=== PATIENT | female | born 1955 | race Caucasian/White ===

== ENCOUNTER 2016-09-23 19:24 | Inpatient (IN) | payer MEDICARE ==
[~2016-09-23] VITALS: Ht 162.6 cm; Wt 57.9 kg
[~2016-09-23 19:24] MED LIST: ALBUTHFA INH; AMAN100T PO; BISA5TAB12 PO; BISA5TAB96 PO; BUPR150T12 PO; BUPR200T PO; CYCL10TA9 PO; GLAT20KI2 SUBQ; HYDR50CA PO; HYDR50CA3 PO; KEP500TA PO; LANS30CA14 PO; LANS30CA8 PO; MIRT45TA PO; MIRT45TA5 PO; OXYC1TAB24 PO; PER5 PO; POLY1PAC PO; RANI300T4 PO; SOD4000S2 PO; SYM100 PO; VENL100T3 PO; VIS50 PO; [UNRECOGNIZED DRUG - CODE] PO; copaxone SC
[2016-09-23] MEDS ORDERED: Albuterol 2.5 mg/3 mL Inhalation Solution NEB PRN (19:45)
[2016-09-23] MEDS ORDERED: Alum-Mag Hydrox-Simeth 30 mL Suspension PO PRN (19:45)
[2016-09-23] MEDS ORDERED: Polyethylene Glycol (PEG) 17 Gm Powder PO PRN (19:45)
[2016-09-23 20:22] VITALS: PULSE 122; RESP 24; O2SAT 98
--- NOTE | 2016-09-23 20:26 | PCM.HPMED ---
Subjective Date of Service Sep 23, 2016 Primary Provider: Admitting Physician: April Horan DO Primary Care Physician: Tee Elliott MD Attending Physician: April Horan DO Admit Status: Direct Admit (from urgent care) Chief Complaint: Productive cough History of Present Illness: Ms. Nicci John is a 61-year-old woman with a history of relapsing remitting multiple sclerosis, seizure disorder suspected to be secondary to multiple sclerosis or electrolyte imbalance, history of pneumonia requiring intubation, tension headaches, chronic pain, ongoing tobacco use, and depression , that presented to [facility] as a direct admission from urgent care for ongoing symptoms of productive cough, tachycardia, and congestion. She was admitted for evaluation of suspected community-acquired pneumonia in the setting of undiagnosed COPD. Hospital day 1 Patient is a rather poor historian, and is unable to recall many details of her medical history and current medication list. She notes that over the recent few weeks, she has been experiencing a daily, frequent, productive cough. She denies any associated fever, nausea, vomiting, dysuria, diarrhea. She does endorse a headache, which is chronic for her, in addition to occasional chills. She does note her was recently ill with cold-like symptoms as well, and her symptoms over the recent weeks have not improved. Her is present for the latter half of the admission, and he strongly feels as if his place of residence is contributing to their symptoms, as they have both been feeling ill recently. Patient denies any personal history of diagnosis of COPD , despite her lengthy tobacco history, which is estimated at approximately 45- 50 pack years, as patient reports she recently cut down her smoking to approximately one half pack per day. She denies any history of chronic or daily alcohol use or substance abuse, but review of past admissions, it was noted that she was at one time a daily drinker and does have a history of amphetamine use. She does use home oxygen therapy. She describes her cough as continuous, but she denies any associated shortness of breath with the coughing , and she also denies post tussive emesis. She denies any hemoptysis. As an outpatient, she was prescribed azithromycin on 09/21. She denies any other antibiotic use. Of note, patient had multiple admissions for atypical pneumonia back in 2011 which required a prolonged ICU stay, as she was intubated. At that time, no organism was identified. At urgent care, T 37.0, pulse 138, BP 105/68, 91% on room air with ambulation, 93% on rest; labs are obtained when she arrived to hospital floor. She was [place] [facility]. Review of Systems: Complete ROS obtained; pertinent positives and negatives as noted above Allergies Coded Allergies: tetracycline (Verified Allergy, Severe, 04/22/12) lorazepam (Verified Adverse Reaction, Intermediate, confusion, 04/22/12) gives patient amnesia and confusion Home Medications Medication list obtained from [email or web address], 09/23/2016, as patient is unable to recall any of her medications: Alvaro Nicci Smita. [id number] 1955 09/23/2016 05:40 PM 06/02 Start Date Medication Directions 09/21/2016 Aerochamber MV spacer Use as directed with inhaler 09/21/2016 azithromycin 250 mg tablet Take 2 tablets today and then 1 tablet each day after that until gone 03/20/2015 Flovent HFA 220 mcg/actuation aerosol inhaler inhale 2 puff by inhalation route 2 times every day hydroxyzine pamoate 50 mg capsule take 1 capsule by oral route every evening lansoprazole 30 mg capsule,delayed release take 1 capsule by oral route every day before a meal mirtazapine 45 mg tablet take 1 tablet by oral route every day before bedtime oxycodone-acetaminophen 5 mg-325 mg tablet take 2 tablet by oral route every 8 hours as needed 09/21/2016 prednisone 50 mg tablet take 1 tablet by oral route every day promethazine 25 mg tablet take 1 tablet by oral route every day at bedtime Tecfidera venlafaxine 100 mg tablet take 1 tablet by oral route 3 times every day with food 09/21/2016 Ventolin HFA 90 mcg/actuation aerosol inhaler inhale 2 puff by inhalation route every 4 - 6 hours as needed PMH Multiple sclerosis, relapsing remitting- followed at [facility] Headaches, tension type Chronic Pain GERD Depression/anxiety Tobacco use She denies any history of diabetes, lung conditions including asthma and COPD, denies any history of gastrointestinal disorders, denies any history of cardiac disorders. Surgical History sections Tonsillectomy EGD 2013 Colonoscopy 2013 Family History Reports multiple family members with diabetes; reports her father had one lung removed, of what she suspects to be secondary to cancer, but she is quite unsure ; denies any family history of neurological disorders Social History Occupation: disability Hx Alcohol Use: No (denies any alcohol use at this time) Hx Substance Use: Yes (WEED WHEN SHE WAS 17 YRS. OLD; chart review indicates amphetamine use in the past) Hx Tobacco Use: Yes (approximately 45 year history, currently 0.5 packs per day ) Smoking Status: Current Every Day Smoker (0.5 packs per day) Living Arrangement: with Family (, local; the vintage) Exam Exam General: Frail-appearing woman, alert and oriented 3, cooperative HEENT: Atraumatic, sclera anicteric, mucous membranes moist Neck: No evidence JVD, good skin turgor Cardiac: Tachycardic with a regular rhythm with rate approximately 100 at time of evaluation, no murmurs appreciated Respiratory: Bibasilar crackles appreciated with diffuse wheeze all hicks; no use of accessory muscles; patient was coughing throughout interview and respiratory examination Abdomen: Soft, nontender, nondistended Extremities: Thin, no edema present Skin: Warm and dry Pulses: Radial equal and intact, posterior tibialis equal and intact Neuro: Cranial nerves II through XII grossly intact, facial expressions were symmetric, speech was without slur Psych: Appropriate mood, affect, and response to questioning; although patient admits to "fog" and is unable to provide many details of her medical history which may be limiting to her insight and judgment Assessment & Plan Ms. Nicci John is a 61-year-old woman with a history of relapsing remitting multiple sclerosis, seizure disorder suspected to be secondary to multiple sclerosis or electrolyte imbalance, history of pneumonia requiring intubation, tension headaches, chronic pain, ongoing tobacco use, and depression , that presented to [facility] as a direct admission from urgent care for ongoing symptoms of productive cough, tachycardia, and congestion. She was admitted for evaluation of suspected community-acquired pneumonia in the setting of undiagnosed COPD. Hospital day 1 Sepsis, acute, present on admission. Under evaluation - On admit: P122. WBC 20.3 - DDx: Infectious, likely pulmonary etiology in a pt with underlying COPD - PCT 14.31; LA 1.1 - Treat underlying cause(s) - Abx: ceftriaxone and azithromycin at this time; expand/narrow as results from pending studies return Acute hypoxemic respiratory failure, present on admission. Under evaluation - Likely secondary to acute exacerbation of COPD, which may be due to infection , ongoing tobacco use, environmental triggers - Treat underlying cause Suspected acute exacerbation of undiagnosed COPD, present on admission. Under evaluation - Patient has long time tobacco use; reports recent sick contacts; denies Dx COPD - DDx: Environmental triggers, continued tobacco use, viral/bacterial infection , atypical infection - CXR 09/21: Bronchitis, left lower lobe pneumonia - Blood cultures, strep pneumo urine antigen, Legionella antigen, respiratory PCR, sputum cultures, MRSA swab - CBC with differential, CMP, PCT obtained - Abx: Ceftriaxone plus azithromycin - Prednisone burst; 40 mg daily 5 days; she denies any current or previous long -term steroid use - Duoneb qidwa + accuneb q2h prn Metabolic acidosis, pure, acute, present on admission. Under evaluation - On admit: Na 130, Cl 91, bicarb 17, albumin 4.3; AG 22/delta gap 10; 1.43 ratio - DDx: Ketones, uremia, lactic acid, toxins - Likely secondary to initial presentation of sepsis/suspicion for LA; decrease in Na secondary to medication (mirtazapine), or side effect tecfidera - Continue to monitor as underlying infection is treated - Awaiting UA Electrolyte abnormalities, acute, present on admission. Under therapy - On admit: Mg 1.3, K 3.4 Na 130 - Repleted on admission with 2g Mg and 40mEq K - Monitor with daily labs Ongoing tobacco use, chronic. Presumed stable - Patient reports decrease of daily use - Nicotine patch daily plus lozenges as needed - Continue to deputy general counsel on cessation Tachycardia, acute, present on admission. Under evaluation - May be secondary to ongoing cough, anxiety, infection, nebulizer treatment - Patient denies any cardiac symptoms of chest pain and palpitations - Address underlying causes, notably increased anxiety and coughing Relapsing remitting multiple sclerosis, chronic. Presumed stable - Patient admits to intermittent "fog" - Patient states symptoms are currently stable - Monitor - Home med Tecfidera: Order for pt to use own medication placed Anxiety/depression, chronic. Presumed stable - Resume home medications when reconciliation completed: Hydroxyzine, mirtazapine, promethazine per [employer] Tension-type headaches, chronic. Presumed stable - Resume home medications when rec completed: Venlafaxine per [employer] Chronic pain. Presumed stable - Patient reports oxycodone daily use; verified in [employer] - Available when necessary GERD, chronic. Presumed stable - Resume daily PPI therapy MED REC NOT YET COMPLETED AT TIME OF ADMISSION PRN: Fever/nausea/bowel/pain GI: PPI Diet: General; bedside swallow eval to assess aspiration with cough DVT: Heparin every 8h IVF: NS 100 CODE STATUS: Full code Patient status: Due to severity of presenting symptoms, risk of adverse events, and likely course of care, anticipated length of stay exceeds two midnights, patient admitted as inpatient status Pain Evaluation: Adequate Pain Control GI Prophylaxis: Proton Pump Inhibitor VTE Prophylaxis: Sub-Q Heparin (Unfractionated) Resuscitation Status: CPR: Attempt Resuscitation Attending Statement The patient was seen and examined together with house staff on 09/23/2016 and I agree with the history, exam and plan as outlined in the note above. Sapna Owen DO Sep 23, 2016 20:26 April Horan DO Sep 24, 2016 03:00
[2016-09-23] MEDS ORDERED: Albuterol-Ipratropium 3 mL Inhalation Solution NEB SCH (20:30)
[2016-09-23] MEDS ORDERED: cefTRIAXone Inj 2,000 MG in Dextrose 5% Minibag Plus 50 ML IV SCH (20:40)
[2016-09-23] MEDS ORDERED: predniSONE 20 mg Tablet PO ONE (20:40)
[2016-09-23 20:50] LABS: BASOPHILS % (AUTO) 0.2 % (0-3); EOSINOPHILS % (AUTO) 0.2 % (0-5); MONOCYTES % (AUTO) 8.7 % (4-12); Mean Corpuscular Hemoglobin 27.4 pg (27.0-35.0); Mean Corpuscular Volume 77.6 fL (81-100); NEUTROPHILS % (AUTO) 79.9 % (40-74); Platelet Count 452 bil/L (150-400)
[2016-09-23 20:52] VITALS: BP 114/72; PULSE 116; RESP 20; O2SAT 98
[2016-09-23] MEDS ORDERED: oxyCODONE-Acetamin 5-325 mg Tablet PO PRN (20:55)
[2016-09-23] MEDS: Albuterol-Ipratropium 3 mL Inhalation Solution NEB SCH (21:00)
[2016-09-23] MEDS: 0.9% Sodium Chloride 1,000 ML IV SCH (21:19)
[2016-09-23 21:29] LABS: TROPONIN T 0.01 ug/L (0.0-0.011)
[2016-09-23 21:40] LABS: Magnesium 1.3 mg/dL (1.6-2.6)
[2016-09-23] MEDS ORDERED: DIME240C2 PO (23:24)
[2016-09-23] MEDS ORDERED: Magnesium Sulf 2 Gm/50mL Water 2 GM in IV Premix 1 EACH IV ONE (23:25)
[2016-09-23] MEDS ORDERED: Codeine-guaiFENesin 5 mL Syrup PO PRN (23:25)
[2016-09-23] MEDS ORDERED: KCl 40 mEq/D5W 500 mL 40 MEQ in IV Premix 1 EACH IV ONE (23:25)
[2016-09-24] VITALS (14 sets, daily range): BP systolic 100–137; BP diastolic 55–83; PULSE 79–136; RESP 18–28; O2SAT 90–97
[2016-09-24] MEDS: Heparin 5,000 Unit/mL Inj SUBQ SCH ×4 (00:10→23:35)
[2016-09-24] MEDS: oxyCODONE-Acetamin 5-325 mg Tablet PO PRN ×3 (00:10→21:13)
[2016-09-24] MEDS: Codeine-guaiFENesin 10 mL Syrup PO PRN ×5 (00:10→23:35)
[2016-09-24] MEDS: TECFIDERA 240 MG PO SCH ×3 (01:08→21:14)
[2016-09-24] MEDS ORDERED: PROM25TA14 PO (01:33)
[2016-09-24] MEDS ORDERED: HYDR50CA3 PO (01:36)
[2016-09-24] MEDS ORDERED: TIZA4TAB4 PO (01:38)
[2016-09-24] MEDS ORDERED: OXYC1TAB24 PO (01:44)
[2016-09-24] MEDS ORDERED: LANS30CA14 PO (01:46)
[2016-09-24] MEDS ORDERED: LEVE500T3 PO (01:47)
[2016-09-24] MEDS ORDERED: hydrOXYzine Pamoate 25 mg Capsule PO ONE (02:10)
[2016-09-24] MEDS ORDERED: MIRT45TA5 PO (03:24)
[2016-09-24] MEDS ORDERED: RANI300T4 PO (03:26)
[2016-09-24] MEDS ORDERED: VENL100T3 PO (03:27)
[2016-09-24] MEDS ORDERED: VIT1TABL83 PO (03:33)
[2016-09-24] MEDS ORDERED: ASCO100089 PO (03:34)
[2016-09-24 03:35] LABS: APPEARANCE,URINE CLEAR (CLEAR,HAZY); COLOR,URINE YELLOW (YELLOW); OCCULT BLOOD,URINE NEGATIVE (NEGATIVE); UROBILINOGEN,URINE NORMAL (NORMAL)
[2016-09-24] MEDS ORDERED: CHOL500011 PO (03:35)
[2016-09-24] MEDS ORDERED: MULT-666 PO (03:36)
[2016-09-24 05:57] LABS: BASOPHILS % (AUTO) 0.1 % (0-3); EOSINOPHILS % (AUTO) 0.5 % (0-5); MONOCYTES % (AUTO) 7.6 % (4-12); Mean Corpuscular Hemoglobin 26.8 pg (27.0-35.0); Mean Corpuscular Volume 77.5 fL (81-100); NEUTROPHILS % (AUTO) 79.8 % (40-74); Platelet Count 434 bil/L (150-400)
[2016-09-24 06:23] LABS: Magnesium 2.2 mg/dL (1.6-2.6); Phosphorus 2.6 mg/dL (2.5-4.9)
[2016-09-24] MEDS: Pantoprazole 40 mg ER24 Tablet PO SCH (07:47)
[2016-09-24] MEDS: Azithromycin Inj 500 MG in Dextrose 5% w/Vial Mate 250 ML IV SCH (07:50)
[2016-09-24] MEDS ORDERED: predniSONE 20 mg Tablet PO SCH (08:30)
--- NOTE | 2016-09-24 09:09 | DRSVH ---
PROCEDURE: X-RAY CHEST ONE VIEW, PORTABLE ([id number]) INDICATIONS: SHORTNESS OF BREATH TECHNIQUE: One view of the chest was acquired. COMPARISON: [facility], CR, CHEST 1VW (PORTABLE), 07/01/2011, 10:10. [facility], CT, CT CHEST WO CON, 01/27/2015, 12:59. [facility], CR, XR CHEST 2VW, 09/21/2016, 19 :06. [facility], CR, XR CHEST 1VW (PORTABLE), 05/31/2015, 22:52. FINDINGS: Surgical changes and devices: None. Lungs and pleura: No pleural effusions or pneumothorax. Interval increase in mid/basilar patchy air space opacities. No pleural effusion or pneumothorax. Mediastinum: Mediastinal contours appear normal. Heart size is normal. Bones and chest wall: No suspicious bony lesions. Overlying soft tissues appear unremarkable. Heal ed right sixth and seventh posterior lateral fractures redemonstrated. IMPRESSION: 1. Increasing bilateral mid/bibasilar airspace opacities suggesting worsening pneumonia. Dictated by: Sandor Hernandez RRA Interpreted: Constance Shah MD on 09/24/2016 at 9:07 Transcribed by: WILTON on 09/24/2016 at 9:09 Approved by: Constance Shah MD, PhD on 09/24/2016 at 12:21
--- NOTE | 2016-09-24 09:29 | PCM.PNMED ---
Subjective Date of Service Sep 24, 2016 Subjective Continues to cough and has dyspnea. Afebrile. Chest x-ray shows worsening pneumonia. Exam Vital Signs Vital Sign - Last Date Time Temp Pulse Resp B/P Pulse Ox O2 Delivery O2 Flow Rate FiO2 09/24/16 09:01 37.0 119 20 100/68 96 Nasal Cannula 2.00 Intake and Output 09/23/16 09/23/16 09/24/16 Cumulative From/Thru 15:00 23:00 07:00 09/23/16 21:28 - 09/24/16 04:50 Intake Total 727 ml 727 ml Balance 727 ml 727 ml IV Total 727 ml 727 ml Exam General: Frail-appearing woman, alert and oriented 3, cooperative HEENT: Atraumatic, sclera anicteric, mucous membranes moist Neck: No evidence JVD, good skin turgor Cardiac: Tachycardic with a regular rhythm with rate approximately 100 at time of evaluation, no murmurs appreciated Respiratory: Bibasilar crackles appreciated with diffuse wheeze all hicks; rhonchi on left lower lung. No use of accessory muscles; patient was coughing throughout interview and respiratory examination Abdomen: Soft, nontender, nondistended Extremities: Thin, no edema present Skin: Warm and dry Pulses: Radial equal and intact, posterior tibialis equal and intact Neuro: Cranial nerves II through XII grossly intact, facial expressions were symmetric, speech was without slur Psych: Appropriate mood, affect, and response to questioning; although patient admits to "fog" and is unable to provide many details of her medical history which may be limiting to her insight and judgment IVs and Medications Medications Reviewed: Medications were reviewed in detail Lab and Diagnostics Result Diagram: 09/24/1653609/24/1637 X-Rays, CTs and MRIs PROCEDURE: X-RAY CHEST ONE VIEW, PORTABLE ([id number]) INDICATIONS: SHORTNESS OF BREATH IMPRESSION: 1. Increasing bilateral mid/bibasilar airspace opacities suggesting worsening pneumonia. Dictated by: Sandor QUINTANILLA Interpreted: Constance Shah MD on 09/24/2016 at 9:07 Assessment & Plan Ms. Nicci John is a 61-year-old woman with a history of relapsing remitting multiple sclerosis, seizure disorder suspected to be secondary to multiple sclerosis or electrolyte imbalance, history of pneumonia requiring intubation, tension headaches, chronic pain, ongoing tobacco use, and depression , that presented to [facility] as a direct admission from urgent care for ongoing symptoms of productive cough, tachycardia, and congestion. She was admitted for evaluation of suspected community-acquired pneumonia in the setting of undiagnosed COPD. Hospital day 1 #Sepsis, acute, present on admission. Under evaluation - On admit: P122. WBC 20.3 - DDx: CAP, likely pulmonary etiology in a pt with underlying COPD - PCT 14.31; LA 1.1. Streptococcus pneumo antigen and legionella negative. Blood culture pending - Treat underlying cause(s) - Initial Abx: ceftriaxone and azithromycin. Will broaden to Zosyn and azithromycin given worsening of bilateral pneumonia on chest x-ray and concern for aspiration -Chest x-ray shows worsening of bilateral pneumonia -Swallow evaluation requested due to concern of aspiration given history of MS and bilateral pneumonia #Acute hypoxemic respiratory failure, present on admission. Under evaluation - Likely secondary to acute exacerbation of COPD, which may be due to infection , ongoing tobacco use, environmental triggers - Treat underlying cause #Suspected acute exacerbation of undiagnosed COPD, present on admission. Under evaluation - Patient has long time tobacco use; reports recent sick contacts; denies Dx COPD - DDx: Environmental triggers, continued tobacco use, viral/bacterial infection , atypical infection - CXR 09/21: Bronchitis, left lower lobe pneumonia - Blood cultures, strep pneumo urine antigen, Legionella antigen, respiratory PCR, sputum cultures, MRSA swab - CBC with differential, CMP, PCT obtained - Abx: Ceftriaxone plus azithromycin - Initially started with Prednisone 40 mg daily 5 days; discontinued as her dyspnea is mainly due to bilateral pneumonia than COPD exacerbation - Duoneb qidwa + accuneb q2h prn #Metabolic acidosis, pure, acute, present on admission. Under evaluation - On admit: Na 130, Cl 91, bicarb 17, albumin 4.3; AG 22/delta gap 10; 1.43 ratio -Due to sepsis - Likely secondary to initial presentation of sepsis/suspicion for LA; decrease in Na secondary to medication (mirtazapine), or side effect tecfidera - Continue to monitor as underlying infection is treated - UA unremarkable #Electrolyte abnormalities, acute, present on admission. Under therapy - On admit: Mg 1.3, K 3.4 Na 130 - Repleted on admission with 2g Mg and 40mEq K - Monitor with daily labs #Ongoing tobacco use, chronic. Presumed stable - Patient reports decrease of daily use - Nicotine patch daily plus lozenges as needed - Continue to rehab/pre vocational counselor on cessation #Tachycardia, acute, present on admission. Under evaluation - May be secondary to ongoing cough, anxiety, infection, nebulizer treatment - Patient denies any cardiac symptoms of chest pain and palpitations - Address underlying causes, notably increased anxiety and coughing #Relapsing remitting multiple sclerosis, chronic. Presumed stable - Patient admits to intermittent "fog" - Patient states symptoms are currently stable - Monitor - Home med Tecfidera: Order for pt to use own medication placed #Anxiety/depression, chronic. Presumed stable - Resume home medications when reconciliation completed: Hydroxyzine, mirtazapine, promethazine per [employer] #Tension-type headaches, chronic. Presumed stable - Resume home medications when rec completed: Venlafaxine per [employer] #Chronic pain. Presumed stable - Patient reports oxycodone daily use; verified in [employer] - Available when necessary #GERD, chronic. Presumed stable - Resume daily PPI therapy MED REC PENDING PRN: Fever/nausea/bowel/pain GI: PPI Diet: General; bedside swallow eval to assess aspiration with cough DVT: Heparin every 8h IVF: NS 100 CODE STATUS: Full code Patient status: Due to severity of presenting symptoms, risk of adverse events, and likely course of care, anticipated length of stay exceeds two midnights, patient admitted as inpatient status Disposition: Possible discharge in 1-2 days. GI Prophylaxis: Proton Pump Inhibitor VTE Prophylaxis: Sub-Q Heparin (Unfractionated) Resuscitation Status: CPR: Attempt Resuscitation Neal Gregg MD Sep 24, 2016 09:28
[2016-09-24] MEDS: Albuterol-Ipratropium 3 mL Inhalation Solution NEB SCH ×3 (11:45→19:47)
[2016-09-24] MEDS: Piperacillin-Tazo 3.375 Gm Inj 3.375 GM in Dextrose 5% Minibag Plus 50 ML IV SCH ×2 (11:57→17:34)
[2016-09-24] MEDS: 0.9% Sodium Chloride 1,000 ML IV SCH ×2 (17:43→19:07)
[2016-09-24] MEDS ORDERED: Non-Formulary Medication (Ranitidine 300 MG) PO SCH (21:00)
[2016-09-24] MEDS: levETIRAcetam 500 mg Tablet PO SCH (21:13)
[2016-09-25] VITALS (12 sets, daily range): BP systolic 110–123; BP diastolic 65–82; PULSE 103–126; RESP 20–28; O2SAT 88–97
[2016-09-25] MEDS: oxyCODONE-Acetamin 5-325 mg Tablet PO PRN ×3 (00:46→19:57)
[2016-09-25] MEDS: Piperacillin-Tazo 3.375 Gm Inj 3.375 GM in Dextrose 5% Minibag Plus 50 ML IV SCH ×3 (02:12→18:22)
[2016-09-25] MEDS: 0.9% Sodium Chloride 1,000 ML IV SCH ×3 (05:56→20:43)
[2016-09-25] MEDS ORDERED: 0.9% Sodium Chloride 1,000 ML IV ONE (06:55)
[2016-09-25] MEDS: Albuterol-Ipratropium 3 mL Inhalation Solution NEB SCH ×4 (07:25→19:26)
[2016-09-25] MEDS: Azithromycin Inj 500 MG in Dextrose 5% w/Vial Mate 250 ML IV SCH (08:04)
[2016-09-25] MEDS ORDERED: LANSOPRAZOLE 30 MG PO SCH (08:30)
[2016-09-25] MEDS ORDERED: Non-Formulary Medication (Vit B Comp/C/FA/Iron/Vit E (Vitamin B Complex Tablet) 1 EACH) PO SCH (08:30)
--- NOTE | 2016-09-25 08:58 | PCM.PNMED ---
Subjective Date of Service Sep 25, 2016 Subjective Continues to have cough and dyspnea but slightly improved. Continues to have sinus tachycardia. Afebrile Exam Vital Signs Vital Sign - Last Date Time Temp Pulse Resp B/P Pulse Ox O2 Delivery O2 Flow Rate FiO2 09/25/16 07:27 110 09/25/16 07:25 20 92 Nasal Cannula 2.00 09/25/16 06:47 36.9 110/65 Intake and Output 09/24/16 09/24/16 09/25/16 Cumulative From/Thru 15:00 23:00 07:00 09/23/16 21:28 - 09/25/16 05:56 Intake Total 500 ml 2011 ml 969 ml 4207 ml Output Total 450 ml 1100 ml 500 ml 2050 ml Balance 50 ml 911 ml 469 ml 2157 ml Intake Oral 500 ml 1000 ml 1500 ml IV Total 1011 ml 969 ml 2707 ml Output Urine Total 450 ml 1100 ml 500 ml 2050 ml # Voids 1 1 # Bowel Movements 0 0 Exam General: Frail-appearing woman, alert and oriented 3, cooperative HEENT: Atraumatic, sclera anicteric, mucous membranes moist Neck: No evidence JVD, good skin turgor Cardiac: Tachycardic with a regular rhythm with rate approximately 100 at time of evaluation, no murmurs appreciated Respiratory: Bibasilar crackles appreciated with diffuse wheeze all hicks; rhonchi on left lower lung. No use of accessory muscles; patient was coughing throughout interview and respiratory examination Abdomen: Soft, nontender, nondistended Extremities: Thin, no edema present Skin: Warm and dry Pulses: Radial equal and intact, posterior tibialis equal and intact Neuro: Cranial nerves II through XII grossly intact, facial expressions were symmetric, speech was without slur Psych: Appropriate mood, affect, and response to questioning; although patient admits to "fog" and is unable to provide many details of her medical history which may be limiting to her insight and judgment IVs and Medications Medications Reviewed: Medications were reviewed in detail Lab and Diagnostics Result Diagram: 09/24/1653609/24/16536 X-Rays, CTs and MRIs PROCEDURE: X-RAY CHEST ONE VIEW, PORTABLE ([id number]) INDICATIONS: SHORTNESS OF BREATH IMPRESSION: 1. Increasing bilateral mid/bibasilar airspace opacities suggesting worsening pneumonia. Dictated by: Sandor QUINTANILLA Interpreted: Constance Shah MD on 09/24/2016 at 9:07 Assessment & Plan Ms. Nicci John is a 61-year-old woman with a history of relapsing remitting multiple sclerosis, seizure disorder suspected to be secondary to multiple sclerosis or electrolyte imbalance, history of pneumonia requiring intubation, tension headaches, chronic pain, ongoing tobacco use, and depression , that presented to [facility] as a direct admission from urgent care for ongoing symptoms of productive cough, tachycardia, and congestion. She was admitted for evaluation of suspected community-acquired pneumonia in the setting of undiagnosed COPD. Hospital day 1 #Sepsis, acute, present on admission. Under evaluation - On admit: P122. WBC 20.3 - due to bilateral CAP in a pt with underlying COPD. Initially suspected of aspiration due to bilateral pneumonia and MS history. Swallow eval low risk for aspiration - PCT 14.31; LA 1.1. Streptococcus pneumo antigen and legionella negative. Blood culture negative - Initial Abx: ceftriaxone and azithromycin. broaden to Zosyn and azithromycin given worsening of bilateral pneumonia on chest x-ray and concern for aspiration -Chest x-ray shows worsening of bilateral pneumonia #Acute hypoxemic respiratory failure, present on admission. Under evaluation - Likely secondary to community-acquired pneumonia, - Treat underlying cause #Suspected acute exacerbation of undiagnosed COPD, present on admission. Under evaluation - Patient has long time tobacco use; reports recent sick contacts; denies Dx COPD - CXR 09/21: Bronchitis, left lower lobe pneumonia -Patient needs outpatient pulmonary function test - Initially started with Prednisone 40 mg daily 5 days; discontinued as her dyspnea is mainly due to bilateral pneumonia than COPD exacerbation - Duoneb qidwa + accuneb q2h prn #Metabolic acidosis, pure, acute, present on admission. Under evaluation - On admit: Na 130, Cl 91, bicarb 17, albumin 4.3; AG 22/delta gap 10; 1.43 ratio -Due to sepsis - Likely secondary to initial presentation of sepsis/suspicion for LA; decrease in Na secondary to medication (mirtazapine), or side effect tecfidera - Continue to monitor as underlying infection is treated - UA unremarkable #Electrolyte abnormalities, acute, present on admission. Under therapy - On admit: Mg 1.3, K 3.4 Na 130 - Repleted on admission with 2g Mg and 40mEq K - Monitor with daily labs #Ongoing tobacco use, chronic. Presumed stable - Patient reports decrease of daily use - Nicotine patch daily plus lozenges as needed - Continue to recreation counselor on cessation #Tachycardia, acute, present on admission. Under evaluation - May be secondary to ongoing cough, anxiety, infection, nebulizer treatment - Patient denies any cardiac symptoms of chest pain and palpitations - Address underlying causes, notably increased anxiety and coughing -We will give normal saline bolus today -TSH requested #Relapsing remitting multiple sclerosis, chronic. Presumed stable - Patient admits to intermittent "fog" - Patient states symptoms are currently stable - Monitor - Home med Tecf[employer]: Order for pt to use own medication placed #Anxiety/depression, chronic. Presumed stable - Resume home medications ,: Hydroxyzine, mirtazapine, promethazine per [facility] #Tension-type headaches, chronic. Presumed stable - Resume home medications : Venlafaxine per [facility] #Chronic pain. Presumed stable - Patient reports oxycodone daily use; verified in [facility] - Available when necessary #GERD, chronic. Presumed stable - Resume daily PPI therapy MED REC PENDING PRN: Fever/nausea/bowel/pain GI: PPI Diet: General; bedside swallow eval to assess aspiration with cough DVT: Heparin every 8h IVF: NS 100 CODE STATUS: Full code Patient status: Due to severity of presenting symptoms, risk of adverse events, and likely course of care, anticipated length of stay exceeds two midnights, patient admitted as inpatient status Disposition: Possible discharge in 1-2 days. GI Prophylaxis: Proton Pump Inhibitor VTE Prophylaxis: Sub-Q Heparin (Unfractionated) Resuscitation Status: CPR: Attempt Resuscitation Neal Gregg MD Sep 25, 2016 08:58 GI Prophylaxis: Proton Pump Inhibitor VTE Prophylaxis: Sub-Q Heparin (Unfractionated) Resuscitation Status: CPR: Attempt Resuscitation Neal Gregg MD Sep 25, 2016 08:58
[2016-09-25] MEDS: TECFIDERA 240 MG PO SCH ×2 (09:24→20:43)
[2016-09-25] MEDS: levETIRAcetam 500 mg Tablet PO SCH ×2 (09:25→20:42)
[2016-09-25] MEDS: Pantoprazole 40 mg ER24 Tablet PO SCH (09:25)
[2016-09-25] MEDS: Ascorbic Acid 500 mg Tablet PO SCH (09:26)
[2016-09-25] MEDS: Heparin 5,000 Unit/mL Inj SUBQ SCH ×2 (09:26→16:45)
[2016-09-25 09:36] LABS: BASOPHILS % (AUTO) 0.1 % (0-3); EOSINOPHILS % (AUTO) 0.5 % (0-5); MONOCYTES % (AUTO) 5.2 % (4-12); Mean Corpuscular Hemoglobin 27.3 pg (27.0-35.0); Mean Corpuscular Volume 78.5 fL (81-100); NEUTROPHILS % (AUTO) 82.2 % (40-74); Platelet Count 427 bil/L (150-400)
[2016-09-25] MEDS: Codeine-guaiFENesin 10 mL Syrup PO PRN ×3 (09:52→19:57)
[2016-09-25 10:19] LABS: Magnesium 1.5 mg/dL (1.6-2.6); Phosphorus 2.1 mg/dL (2.5-4.9)
[2016-09-25] MEDS ORDERED: Magnesium Sulf 2 Gm/50mL Water 2 GM in IV Premix 1 EACH IV ONE (12:10)
[2016-09-25] MEDS ORDERED: Potassium Chloride 20 mEq SR Tablet PO ONE (12:10)
[2016-09-26] VITALS (22 sets, daily range): BP systolic 102–136; BP diastolic 43–95; PULSE 104–139; RESP 18–48; O2SAT 80–100
[2016-09-26] MEDS: Heparin 5,000 Unit/mL Inj SUBQ SCH ×4 (00:24→23:36)
[2016-09-26] MEDS: Codeine-guaiFENesin 10 mL Syrup PO PRN (01:37)
[2016-09-26] MEDS: oxyCODONE-Acetamin 5-325 mg Tablet PO PRN ×3 (01:37→20:26)
--- NOTE | 2016-09-26 02:12 | ABG ---
DateTimeAnalyzed 02:07:00 -_ pH ____7.366 - 7.350 7.450 pCO2 ___35.0__ -mmHg 35.0 45.0 pO2 ___69.0__ -mmHg 69.0 116 HCO3- ___19.6__ -mmol/L 22.0 26.0 ABE ___-4.7__ -mmol/L -2.0 2.0 tHb ___10.0__ -g/dL O2Hb ___92.1__ -% COHb ____0.9__ -% MetHb ____1.0__ -% sO2 ___93.9__ -% FIO2 ___21.0__ -% Drawn By MD - Date/Time Notified____ 02:12:00 -_ Spontaneous_RR ___28.0__ -b/min Liter_Flow ___10.0__ -L/min Oxygen Device 1 AEROSOL MASK - Notified By MD - Notified Whom RN K. MARTIN - B 760 -mmHg tO2 ___13.0__ -Vol% Al test _Positive -
[2016-09-26] MEDS: Piperacillin-Tazo 3.375 Gm Inj 3.375 GM in Dextrose 5% Minibag Plus 50 ML IV SCH ×3 (02:13→17:48)
[2016-09-26] MEDS: 0.9% Sodium Chloride 1,000 ML IV SCH ×2 (07:45→17:45)
--- NOTE | 2016-09-26 07:48 | DRSVH ---
PROCEDURE: X-RAY CHEST ONE VIEW, PORTABLE ([id number]) INDICATIONS: SOB TECHNIQUE: One view of the chest was acquired. COMPARISON: [facility], CR, XR CHEST 1VW (PORTABLE), 09/24/2016, 8:21. [facility], CR, XR CHEST 2VW, 09/21/2016, 19:06. FINDINGS: Surgical changes and devices: None. Lungs and pleura: There has been marked diffuse interval worsening of bilateral patchy opacities. Mediastinum: Mediastinal contours appear normal. Heart size is normal. Bones and chest wall: No suspicious bony lesions. Overlying soft tissues appear unremarkable. IMPRESSION: Marked diffuse interval worsening of diffuse bilateral patchy opacities. This could be re lated to worsening infection such as pneumonia. However, development of diffuse edema or ARDS cannot be excluded. Dictated by: Tiffany Womack M.D. on 09/26/2016 at 7:46 Approved by: Tiffany Womack M.D. on 09/26/2016 at 7:47
[2016-09-26] MEDS: TECFIDERA 240 MG PO SCH ×2 (07:54→20:26)
[2016-09-26] MEDS: Pantoprazole 40 mg ER24 Tablet PO SCH (07:55)
[2016-09-26] MEDS: Ascorbic Acid 500 mg Tablet PO SCH (07:55)
[2016-09-26] MEDS: levETIRAcetam 500 mg Tablet PO SCH ×2 (07:55→20:25)
[2016-09-26 08:47] LABS: BASOPHILS % (AUTO) 0.2 % (0-3); EOSINOPHILS % (AUTO) 0.6 % (0-5); MONOCYTES % (AUTO) 4.7 % (4-12); Mean Corpuscular Hemoglobin 27.3 pg (27.0-35.0); Mean Corpuscular Volume 76.7 fL (81-100); NEUTROPHILS % (AUTO) 83.9 % (40-74); Platelet Count 410 bil/L (150-400)
[2016-09-26] MEDS: Albuterol-Ipratropium 3 mL Inhalation Solution NEB SCH ×4 (09:12→20:16)
[2016-09-26 09:15] LABS: Magnesium 1.4 mg/dL (1.6-2.6)
[2016-09-26] MEDS: Azithromycin Inj 500 MG in Dextrose 5% w/Vial Mate 250 ML IV SCH (09:44)
[2016-09-26] MEDS ORDERED: Magnesium Sulf 4 Gm/100 mL H2O 4 GM in IV Premix 1 EACH IV ONE (10:05)
[2016-09-26] MEDS ORDERED: Potassium Chloride 20 mEq SR Tablet PO ONE (10:05)
[2016-09-26] MEDS ORDERED: KCl 40 mEq/D5W 500 mL 40 MEQ in IV Premix 1 EACH IV ONE (10:15)
[2016-09-26] MEDS ORDERED: Sodium Chloride LOK Flush 10 mL Syringe IVFLUSH PRN ×2 (10:15)
--- NOTE | 2016-09-26 10:39 | ABG ---
DateTimeAnalyzed 10:35:00 -_ pH ____7.446 - 7.350 7.450 pCO2 ___35.1__ -mmHg 35.0 45.0 pO2 ___65.2__ -mmHg 69.0 116 HCO3- ___23.8__ -mmol/L 22.0 26.0 ABE ____0.5__ -mmol/L -2.0 2.0 tHb ___10.1__ -g/dL O2Hb ___92.9__ -% COHb ____0.9__ -% MetHb ____0.9__ -% sO2 ___94.6__ -% FIO2 ___50.0__ -% PEEP ____5.0__ -cmH2O Drawn By as - Date/Time Notified____ 10:39:00 -_ Spontaneous_RR ___52.0__ -b/min Oxygen Device 1 BIPAP/AVAPS - Notified By AMS - Notified Whom DR WALT - B 763 -mmHg tO2 ___13.3__ -Vol% Al test _Positive -
--- NOTE | 2016-09-26 14:54 | DRSVH ---
PROCEDURE: X-RAY PICC LINE PLACEMENT BY NURSE ([id number]) INDICATIONS: access COMPARISON: None. FINDINGS: PICC was placed by the intravenous therapy team from the left side. Fluoroscopic spot massiel m demonstrates tip of PICC overlies the mid/distal SVC. IMPRESSION: Tip of PICC overlies the mid/distal SVC. Dictated by: Tiffany Womack M.D. on 09/26/2016 at 14:52 Approved by: Tiffany Womack M.D. on 09/26/2016 at 14:52
[2016-09-26] MEDS ORDERED: Furosemide 10 mg/mL 2 mL Inj IVPUSH ONE (15:45)
[2016-09-26] MEDS ORDERED: KCl 40 mEq/100 mL (CENTRAL) 40 MEQ in IV Premix 1 EACH IV ONE (15:45)
[2016-09-26] MEDS ORDERED: MethylprednisoLONE Sodium Succinate 40 mg/mL Inj IVPUSH ONE (15:45)
--- NOTE | 2016-09-26 15:46 | PCM.CHPMED ---
Subjective Date of Service: Sep 26, 2016 Provider requesting consult: Maldonado Parsons MD Primary Physician: Admitting Physician: April Horan DO Primary Care Physician: Tee Elliott MD Attending Physician: April Horan DO Chief Complaint: Chief Complaint: Pulmonary Medicine Consult requested in this 61yo woman admitted with previously undiagnosed COPD and acute CAP with progressive hypoxia and respiratory distress since admission. History of Present Illness: 61yo woman with relapsing remitting multiple sclerosis, seizure disorder, chronic headaches, Hx of pneumonia requiring intubation several years ago, depression, previously undiagnosed COPD, and active cigarette smoking who was admitted 09/24 with a several day Hx of frequent productive cough and mild dyspnea after presenting to Urgent Care and was found to have significant Room Air hypoxia (SpO2 in the 70s). She was initially admitted with a diagnosis of Community Acquired Pneumonia and acute exacerbation of COPD. After admission, her pCXR had progressive infiltrates concerning for worsening pneumonia, so her abx regimen was broadened to piperacillin-tazobactam and her steroids were stopped. Overnight, she had worsening dyspnea and hypoxia on nasal cannula oxygen. She had continued hypoxia and respiratory distress on face mask oxygen. pCXR revealed progressive alveolar filling and interstitial infiltrates. She was subsequently transferred to the Progressive Care Unit and started in high flow nasal cannula O2. Today, she was advanced to BiPAP therapy for continued respiratory distress despite adequate SpO2. She was given a single dose of IV lorazepam 0.5mg for tachypnea but she became significantly confused and disoriented. Pulmonary Medicine was consulted to assist in the evaluation and management of this patient. Review of Systems: limited by respiratory distress and current BiPAP use. ROS from H&P reviewed. PMH Past Medical History PMHx from H&P reviewed and documented in HPI Allergies: Coded Allergies: tetracycline (Verified Allergy, Severe, 04/22/12) lorazepam (Verified Adverse Reaction, Intermediate, confusion, 04/22/12) gives patient amnesia and confusion Social History Occupation: disability Hx Alcohol Use: No (denies any alcohol use at this time)Hx Substance Use: Yes (WEED WHEN SHE WAS 17 YRS. OLD; chart review indicates amphetamine use in the past)Hx Tobacco Use: Yes (approximately 45 year history, currently 0.5 packs per day) Smoking Status: Current Every Day Smoker (0.5 packs per day) Living Arrangement: with Family (, local; the vintage) Exam Vital Signs Vital Sign - Last Date Time Temp Pulse Resp B/P Pulse Ox O2 Delivery O2 Flow Rate FiO2 09/26/16 12:30 37.0 113 48 133/82 96 BiPAP 60 09/26/16 07:49 40 Intake and Output 09/25/16 09/25/16 09/26/16 Cumulative From/Thru 15:00 23:00 07:00 09/23/16 21:28 - 09/26/16 05:53 Intake Total 200 ml 3375 ml 7782 ml Output Total 525 ml 750 ml 3325 ml Balance -325 ml 2625 ml 4457 ml Intake Oral 200 ml 1140 ml 2840 ml IV Total 2235 ml 4942 ml Output Urine Total 525 ml 750 ml 3325 ml # Voids 2 3 # Bowel Movements 0 0 General: Alert, Cooperative, Mild Distress, Other (on face mask BiPAP) Eyes: Scleral Anicteric Mouth: Other (BiPAP mask) Neck: Supple, No Thyromegaly, Other (mild JVD) Chest & Lungs: Diminished breath sounds, Coarse breath sounds, Other ( bibasilar rales) Cardiovascular: Other (tachycardic regular, no murmurs, JVD with + Hepatojugular reflux) Abdomen: Non-tender, Non-distended, Normoactive bowel tones, Soft Genitourinary: Clark Present Extremities: Other (5mm of pitting edema on sacrum and posterior thigh) Lab and Diagnostics Result Diagram: 09/26/16 0837 09/26/16 0837 X-Rays, CTs and MRIs 09/21 CXR with marked hyperinflation with long lungs, flattened hemidiaphragms, and prominent bronchovascular markings c/w emphysema. There was no acute infiltrate or effusion. pCXR 09/24 demonstrated bibasilar patchy, interstitial and alveolar infiltrates without effusion pCXR this AM revealed progressive interstitial and alveolar filling infiltrates bilaterally with biapical sparing. There is no consolidation or effusion. Assessment & Plan Assessment 61yo woman with relapsing remitting multiple sclerosis, seizure disorder, chronic headaches, Hx of pneumonia requiring intubation several years ago, depression, previously undiagnosed COPD, and active cigarette smoking who was admitted 09/24 with Community Acquired Pneumonia and acute exacerbation of COPD. After admission, her pCXR and Oxygen requirement have progressed. She is currently oxygenating well on BiPAP but with tachypnea and mild respiratory distress. Since admission, she is greater than 4L net positive I's>O's, her WBC is trending down slowly, and her procalcitonin (7.3 to 1.1) on aggressive coverage with piperacillin-tazobactam and azithromycin. Her exam is constinet with volume overload: JVD, HJR, basilar rales, and dependent edema. I am impressed by the prominent interstitial and alveolar filling pattern on her CXRs in the setting of baseline severe hyperinflation and bronchovascular prominence consistent with emphysema. This pattern is certainly consistent with a viral pneumonia, but his respiratory virus panel was negative. As such, I wonder if she has baseline bronchiolitis rather than emphysema as a cause of her pulmonary hyperinflation. Outpatient, post-recovery work-up will be required to sort this out. Given this picture, I feel that her clinical deterioration is likely due to an Acute Exacerbation of COPD and Community Acquired Pneumonia with an acute hospital-acquired volume overload. Recommendations- - restart systemic steroids for acute exacerbation of COPD given likely component of acute vs chronic bronchiolitis - continue current piperacillin-tazobactam and azithromycin - continue scheduled bronchodilators - bolus furosemide for diuresis - continue BiPAP support for respiratory support - judicious low dose morphine for dyspnea (significant confusion after low dose lorazepam) - Speech Swallow eval with her Hx of multiple sclerosis and question of possible airway aspiration Pulmonary Medicine will follow along with you. Dr Augustine will take over the service starting AM 5/. Thank you for the opportunity to meet this very nice woman. Problems: Pain Evaluation: Adequate Pain Control GI Prophylaxis: Proton Pump Inhibitor VTE Prophylaxis: Sub-Q Heparin (Unfractionated) Resuscitation Status: CPR: Attempt Resuscitation Time spent total time spent reviewing Hx and dxic studies, interviewing and examining her, and formulating this care plan was 90minutes Nahun Pedersen MD Sep 26, 2016 15:46
--- NOTE | 2016-09-26 16:51 | PCM.PNMED ---
Subjective Date of Service Sep 26, 2016 Subjective Patient is a 61-year-old woman with a history of relapsing remitting multiple sclerosis, seizure disorder suspected to be secondary to multiple sclerosis or electrolyte imbalance, history of pneumonia requiring intubation, tension headaches, chronic pain, ongoing tobacco use, and depression presenting as a direct admit from urgent care for ongoing symptoms of productive cough, tachycardia, and congestion. She was admitted for evaluation of suspected community-acquired pneumonia in the setting of undiagnosed COPD. Hospital day # 4. Overnight the patient was moved to [facility] due to increased oxygen requirements. She was initially placed on high flow then switched to BiPAP and transferred CCU. Patient is without complaints this morning. She did have some anxiety this morning but this seems to be improved. Exam Vital Signs Vital Sign - Last Date Time Temp Pulse Resp B/P Pulse Ox O2 Delivery O2 Flow Rate FiO2 09/26/16 12:30 37.0 113 48 133/82 96 BiPAP 60 09/26/16 07:49 40 Intake and Output 09/25/16 09/25/16 09/26/16 Cumulative From/Thru 15:00 23:00 07:00 09/23/16 21:28 - 09/26/16 05:53 Intake Total 200 ml 3375 ml 7782 ml Output Total 525 ml 750 ml 3325 ml Balance -325 ml 2625 ml 4457 ml Intake Oral 200 ml 1140 ml 2840 ml IV Total 2235 ml 4942 ml Output Urine Total 525 ml 750 ml 3325 ml # Voids 2 3 # Bowel Movements 0 0 Exam General: Frail-appearing woman, alert and oriented 3, cooperative HEENT: Atraumatic, sclera anicteric. BiPAP mask in place Cardiac: Tachycardic with rate approximately 110s. No murmurs appreciated Respiratory: Bibasilar crackles. Abdomen: Soft, nontender, nondistended Extremities: Thin, no edema present Skin: Warm and dry Pulses: Radial equal and intact. Dorsalis pedis equal bilaterally Neuro: Grossly neurologically intact Psych: Appropriate mood and affect IVs and Medications Medications Reviewed: Medications were reviewed in detail Lab and Diagnostics Result Diagram: 09/26/1683609/26/16 08 X-Rays, CTs and MRIs PROCEDURE: X-RAY CHEST ONE VIEW, PORTABLE ([id number]) INDICATIONS: SHORTNESS OF BREATH IMPRESSION: 1. Increasing bilateral mid/bibasilar airspace opacities suggesting worsening pneumonia. Dictated by: Sandor Hernandez [facility] Interpreted: Constance Shah MD on 09/24/2016 at 9:07 Assessment & Plan Patient is a 61-year-old woman with a history of relapsing remitting multiple sclerosis, seizure disorder suspected to be secondary to multiple sclerosis or electrolyte imbalance, history of pneumonia requiring intubation, tension headaches, chronic pain, ongoing tobacco use, and depression presenting as a direct admit from urgent care for ongoing symptoms of productive cough, tachycardia, and congestion. She was admitted for evaluation of suspected community-acquired pneumonia in the setting of undiagnosed COPD. Hospital day # 4. 1. Sepsis, acute, present on admission. Under evaluation - On admit: P122. WBC 20.3 - Due to bilateral CAP in a pt with underlying COPD. Initially suspected of aspiration due to bilateral pneumonia and MS history. Swallow eval low risk for aspiration - PCT 14.31; LA 1.1. Streptococcus pneumo antigen and legionella negative. Blood culture negative - Initial Abx: ceftriaxone and azithromycin which was broadened to Zosyn and azithromycin given worsening of bilateral pneumonia on chest x-ray and concern for aspiration -Chest x-ray shows worsening of bilateral pneumonia 2. Acute hypoxemic respiratory failure, present on admission. Active - Likely secondary to pulmonary process - Treating pneumonia - Lasix 20mg IV one time. Solu-Medrol 60mg IV daily per Pulmonary - Pulmonology consult. Recommendations per Pulm appreciated 3. Suspected acute exacerbation of undiagnosed COPD, present on admission. Under evaluation - Patient has long time tobacco use; reports recent sick contacts; denies diagnosis of COPD - CXR 09/21: Bronchitis, left lower lobe pneumonia - Patient needs outpatient pulmonary function test - Duoneb qidwa + accuneb q2h prn 4. Metabolic acidosis, pure. Acute. Present on admission. Improving - On admit: Na 130, Cl 91, bicarb 17, albumin 4.3; AG 22/delta gap 10; 1.43 ratio - Due to sepsis - Likely secondary to initial presentation of sepsis/suspicion for LA; decrease in Na secondary to medication (mirtazapine), or side effect tecfidera - Continue to monitor as underlying infection is treated - UA unremarkable 6. Electrolyte abnormalities, acute, present on admission. Persists - Repleting electrolytes - PICC line placement - Monitor with daily labs 7. Ongoing tobacco use, chronic. Presumed stable - Patient reports decrease of daily use - Nicotine patch daily plus lozenges as needed - Continue to intellectual property counsel on cessation 8. Tachycardia, acute, present on admission. Under evaluation - May be secondary to ongoing cough, anxiety, infection, nebulizer treatment - Patient denies any cardiac symptoms of chest pain and palpitations - Address underlying causes, notably increased anxiety and coughing - Subclinical hyperthyroidism - Morphine 1-2mg IV Q6 PRN to help with anxiety and air hunger. Patient is allergic to Ativan 9. Relapsing remitting multiple sclerosis, chronic. Presumed stable - Patient admits to intermittent "fog" - Patient states symptoms are currently stable - Monitor - Home med Tec[employer]: Order for pt to use own medication placed 10. Anxiety/depression, chronic. Presumed stable - Resume home medications ,: Hydroxyzine, mirtazapine, promethazine per [facility] 11. Tension-type headaches, chronic. Presumed stable - Resume home medications : Venlafaxine per [facility] 12. Chronic pain. Presumed stable - Patient reports oxycodone daily use; verified in [employer] - Available when necessary 13. GERD, chronic. Presumed stable - Resume daily PPI therapy PRN: Fever/nausea/bowel/pain GI: PPI Diet: General; bedside swallow eval to assess aspiration with cough DVT: Heparin every 8h IVF: NS 100 CODE STATUS: Full code Disposition: Pending clinical course, possible discharge in about 2-3 days. Pain Evaluation: Adequate Pain Control GI Prophylaxis: Proton Pump Inhibitor VTE Prophylaxis: Sub-Q Heparin (Unfractionated) Resuscitation Status: CPR: Attempt Resuscitation Attending Statement The patient was seen and examined together with Dr. Black on 09/26/2016 and I agree with the history, exam and plan as outlined in the note above. . Mehrdad Black DO Sep 26, 2016 16:40 Maldonado Parsons MD September 27, 2016 07:30
[2016-09-27] VITALS (16 sets, daily range): BP systolic 89–120; BP diastolic 52–74; PULSE 95–124; RESP 20–34; O2SAT 93–99
[2016-09-27] MEDS: Piperacillin-Tazo 3.375 Gm Inj 3.375 GM in Dextrose 5% Minibag Plus 50 ML IV SCH ×3 (02:02→17:26)
[2016-09-27] MEDS: oxyCODONE-Acetamin 5-325 mg Tablet PO PRN ×3 (03:23→17:26)
[2016-09-27] MEDS: Codeine-guaiFENesin 10 mL Syrup PO PRN ×3 (03:27→21:32)
[2016-09-27] MEDS: 0.9% Sodium Chloride 1,000 ML IV SCH ×3 (03:31→23:15)
[2016-09-27 05:24] LABS: BASOPHILS % (AUTO) 0.1 % (0-3); EOSINOPHILS % (AUTO) 0.1 % (0-5); MONOCYTES % (AUTO) 5.2 % (4-12); Mean Corpuscular Hemoglobin 27.4 pg (27.0-35.0); Mean Corpuscular Volume 79.4 fL (81-100); NEUTROPHILS % (AUTO) 87.2 % (40-74); Platelet Count 399 bil/L (150-400)
[2016-09-27 05:52] LABS: Magnesium 1.8 mg/dL (1.6-2.6)
[2016-09-27] MEDS: TECFIDERA 240 MG PO SCH ×2 (08:04→21:25)
[2016-09-27] MEDS: Heparin 5,000 Unit/mL Inj SUBQ SCH ×2 (08:05→16:33)
[2016-09-27] MEDS: Pantoprazole 40 mg ER24 Tablet PO SCH (08:05)
[2016-09-27] MEDS: Ascorbic Acid 500 mg Tablet PO SCH (08:05)
[2016-09-27] MEDS: Azithromycin Inj 500 MG in Dextrose 5% w/Vial Mate 250 ML IV SCH (08:06)
[2016-09-27] MEDS: levETIRAcetam 500 mg Tablet PO SCH ×2 (08:06→21:25)
[2016-09-27] MEDS: Albuterol-Ipratropium 3 mL Inhalation Solution NEB SCH ×4 (08:08→19:22)
--- NOTE | 2016-09-27 10:11 | ABG ---
DateTimeAnalyzed 10:06:00 -_ pH ____7.485 - 7.350 7.450 pCO2 ___37.0__ -mmHg 35.0 45.0 pO2 ___75.0__ -mmHg 69.0 116 HCO3- ___27.5__ -mmol/L 22.0 26.0 ABE ____4.3__ -mmol/L -2.0 2.0 tHb ____9.8__ -g/dL O2Hb ___94.1__ -% COHb ____1.0__ -% MetHb ____1.2__ -% sO2 ___96.2__ -% FIO2 ___40.0__ -% Drawn By jj - Date/Time Notified____ 10:11:00 -_ Spontaneous_RR ___30.0__ -b/min Oxygen Device 1 ____BIPAP - Notified By JJ - Notified Whom ___DR. KNDREGAN - B 763 -mmHg tO2 ___13.0__ -Vol% Al test _Positive -
--- NOTE | 2016-09-27 11:37 | DRSVH ---
[facility] [address] [place] [address] Echocardiogram Report Name: SHEEBA OCHOA MStudy Date: 09/27/2016 Height: 64 in Hospital Exam Location: [facility] Weight: 129 lb Gender: Female BSA: 1.6 m2 : 1955 Age: 61 yrs BP: 101/55 mmHg Reason For Study: WORSENING LUNG FUNCTION Ordering Physician: Performed By: Alexy Wolf Referring Physician: SINCERE MEZA Interpretation Summary The study quality was technically difficult. Left ventricular ejection fraction is estimated to be 50 +/- 5%. There are no obvious focal wall motion abnormalities noted but poor endocardial definition reduces the sensitivity for the detection of such. There is mild to moderate mitral regurgitation. There are multiple regurgitant jets present. Compared to the prior echo study, there has been an increase in the severity of mitral regurgitation. Procedure: A two-dimensional transthoracic echocardiogram with color flow and Doppler was performed. The study quality was technically difficult. Comparison is made with the echocardiogram of 06/28/11. The patient was in sinus tachycardia with heart rates between 113-121 bpm during the exam. Left Ventricle: The left ventricle is normal in size. There is normal left ventricular wall thickness. Left ventricular ejection fraction is estimated to be 50 +/- 5%. There are no obvious focal wall motion abnormalities noted but poor endocardial definition reduces the sensitivity for the detection of such. Right Ventricle: The right ventricle is normal in size, thickness and function. Atria: The left atrial size is normal. The right atrium grossly appears normal in size. The interatrial septum is intact with no evidence for an atrial septal defect. Mitral Valve: The mitral valve leaflets appear mildly thickened, but open well. There is mild to moderate mitral regurgitation. There are multiple regurgitant jets present. Compared to the prior echo study, there has been an increase in the severity of mitral regurgitation. Aortic Valve: The aortic valve is not well visualized. No aortic regurgitation is present. Tricuspid Valve: The tricuspid valve is not well visualized, but is grossly normal. The tricuspid valve is not well visualized. Pulmonary artery pressures cannot be estimated because of the lack of a measurable TR jet velocity. Pulmonic Valve: The pulmonic valve is not well visualized. Great Vessels: The aortic root is normal size. The ascending aorta could not be visualized. The pulmonary artery is not well visualized, but is probably normal size. The IVC is of normal diameter and collapses greater than 50% with a sniff. This suggests a low right atrial pressure of 3 mm Hg. Pericardium/ Pleura There is no pericardial effusion. There is no pleural effusion. MMode/2D Measurements & Calculations LVIDd: 4.3 cm LA A2 area LVOT diam LV espinosa. diameter/BSA LVIDs: 3.1 cm : 2.1 cm (cm/m^2): 2.7 FS: 27.8 % EPSS: 0.79 cm LA A4 area IVSd: 0.82 cm LVPWd: 0.74 cm LA length (vol) LA vol: 37.5 ml LA vol index IVC diam: 1.9 cm LV sys. diameter/BSA (cm/m^2): 1.9 Doppler Measurements & Calculations Ao V2 max MV E max jose MV E/A: 0.95 TR max jose: 223.7 cm/sec : 132.4 cm/sec : 91.8 cm/sec TR max P.0 mmHg Ao max P.0 mmHgMV A max jose Ao mean PG : 96.7 cm/sec LVOT Max Jose MVA(VTI): 2.7 cm2 : 115.8 cm/sec ISAIAH(I,D): 2.9 cm sev ratio: 0.86 MV V2 mean Ao V2 mean LV V1 max PG ISAIAH indexed to BSA : 87.0 cm/sec : 89.2 cm/sec (cm^2/m^2): 1.8 MV mean PG Ao V2 VTI: 20.5 cmLV V1 VTI ISAIAH(Beth Schmid): 2.9 cm2 : 17.6 cm MV V2 VTI: 21.7 cm Electronically signed by: Mike Chaudhary on Reading Physician:09/27/2016 11:36 AM
[2016-09-27] MEDS: MethylprednisoLONE Sodium Succinate 40 mg/mL Inj IVPUSH SCH (11:56)
[2016-09-27] MEDS: Furosemide 10 mg/mL 2 mL Inj IVPUSH SCH (11:56)
[2016-09-27] MEDS: Dexmedetomidine 400 mCg/100 mL 400 MCG in IV Premix 1 EACH IV SCH ×2 (12:20→23:36)
--- NOTE | 2016-09-27 12:43 | DRSVH ---
PROCEDURE: X-RAY CHEST ONE VIEW, PORTABLE ([id number]) INDICATIONS: SHORTNESS OF BREATH TECHNIQUE: One view of the chest was acquired. COMPARISON: [facility], CR, XR CHEST 1VW (PORTABLE), 09/26/2016, 1:59. FINDINGS: Surgical changes and devices: Left PICC present tip projected over the lower SVC. Lungs and pleura: There has been no significant change in bilateral patchy and interstitial opacities . Mediastinum: Mediastinal contours appear normal. Heart size is normal. Bones and chest wall: No suspicious bony lesions. Overlying soft tissues appear unremarkable. IMPRESSION: Placement of left PICC otherwise persistent edema and/or diffuse bilateral pneumonia. Dictated by: Sandor Hernandez RRClarissa Interpreted: Tiffany Womack MD on 09/27/2016 at 12:41 Transcribed by: JAMES on 09/27/2016 at 12:42 Approved by: Tiffany Womack M.D. on 09/27/2016 at 17:07
--- NOTE | 2016-09-27 16:10 | PCM.PNMED ---
Subjective Date of Service September 27, 2016 Subjective HD #5 Patient is alert and responsive, complains of the bipap mask and some nasal congestion. She says she is feeling better. Still no bowel movement. Exam Vital Signs Vital Sign - Last Date Time Temp Pulse Resp B/P Pulse Ox O2 Delivery O2 Flow Rate FiO2 09/27/16 13:52 112 95/59 93 09/27/16 12:30 36.5 23 BiPAP 40 09/26/16 07:49 40 Intake and Output 09/26/16 09/26/16 09/27/16 Cumulative From/Thru 15:00 23:00 07:00 09/23/16 21:28 - 09/27/16 05:18 Intake Total 400 ml 2015 ml 415 ml 79959 ml Output Total 1250 ml 2775 ml 1000 ml 8350 ml Balance -850 ml -760 ml -585 ml 2262 ml Intake Oral 400 ml 250 ml 118 ml 3608 ml IV Total 1765 ml 297 ml 7004 ml Output Urine Total 1250 ml 2775 ml 1000 ml 8350 ml # Voids 2 5 # Bowel Movements 0 0 Exam General: Frail-appearing woman, alert and oriented 3, cooperative HEENT: Atraumatic, sclera anicteric. BiPAP mask in place Cardiac: Tachycardic with rate approximately 110s. No murmurs appreciated Respiratory: Bibasilar crackles. Abdomen: Soft, nontender, nondistended Extremities: Thin, no edema present Skin: Warm and dry Pulses: Radial equal and intact. Dorsalis pedis equal bilaterally Neuro: Grossly neurologically intact Psych: Appropriate mood and affect IVs and Medications IV Fluids NS 100mls/hr IV Medications Reviewed: Medications were reviewed in detail Lab and Diagnostics Result Diagram: 09/27/16 0508 09/27/16 0508 X-Rays, CTs and MRIs X-RAY CHEST ONE VIEW, PORTABLE IMPRESSION: Marked diffuse interval worsening of diffuse bilateral patchy opacities. This could be related to worsening infection such as pneumonia. However, development of diffuse edema or ARDS cannot be excluded. Dictated by: Tiffany Womack M.D. on 09/26/2016 at 7:46 X-RAY CHEST ONE VIEW, PORTABLE IMPRESSION: Increasing bilateral mid/bibasilar airspace opacities suggesting worsening pneumonia. Dictated by: Sandor QUINTANILLA Interpreted: Constance Shah MD on 09/24/2016 at 9:07 . Cardiac Echo Impressions Echocardiogram Report Interpretation Summary The study quality was technically difficult. Left ventricular ejection fraction is estimated to be 50 +/- 5%. There are no obvious focal wall motion abnormalities noted but poor endocardial definition reduces the sensitivity for the detection of such. There is mild to moderate mitral regurgitation. There are multiple regurgitant jets present. Compared to the prior echo study, there has been an increase in the severity of mitral regurgitation. Electronically signed by: Mike Chaudhary Reading Physician:09/27/2016 11:36 AM . Assessment & Plan Patient is a 61-year-old woman with a history of relapsing remitting multiple sclerosis, seizure disorder suspected to be secondary to multiple sclerosis or electrolyte imbalance, history of pneumonia requiring intubation, tension headaches, chronic pain, ongoing tobacco use, and depression presenting as a direct admit from urgent care for ongoing symptoms of productive cough, tachycardia, and congestion. She was admitted for evaluation of suspected community-acquired pneumonia in the setting of undiagnosed COPD. Hospital day # 5. 1. Sepsis, acute, present on admission. Under evaluation - On admit: WBC 20.3 improved to 15.8 - Due to bilateral CAP in a pt with underlying COPD. Initially suspected of aspiration due to bilateral pneumonia and MS history. Swallow eval low risk for aspiration - PCT 14.31; LA 1.1. Streptococcus pneumo antigen and legionella negative. Blood culture negative - Initial Abx: ceftriaxone and azithromycin which was broadened to Zosyn and azithromycin on 09/26/16 given worsening of bilateral pneumonia on chest x-ray and concern for aspiration -Chest x-ray shows worsening of bilateral pneumonia 2. Acute hypoxemic respiratory failure, present on admission. Active - Likely secondary to pulmonary process - Treating pneumonia - Solu-Medrol 60mg IV daily per Pulmonary - Pulmonology consult. Recommendations per Pulm appreciated - Oxygen and delivery mechanism managed by Pulm, much appreciated. Now patient again on O2 by nasal cannula. - Echo today indicates worsening mitral regurgitation, now mild to moderate, likely contributing to her hypoxemia, but not the sole etiology of it. 3. Suspected acute exacerbation of undiagnosed COPD, present on admission. Under evaluation - Patient has long time tobacco use; reports recent sick contacts; denies diagnosis of COPD - CXR 09/21: Bronchitis, left lower lobe pneumonia - Patient needs outpatient pulmonary function test - Duoneb qidwa + accuneb q2h prn 4. Metabolic acidosis, pure. Acute. Present on admission. Changing as below - On admit: Na 130, Cl 91, bicarb 17, albumin 4.3; AG 22/delta gap 10; 1.43 ratio, - On 09/27/16: Na 137, Cl 96, bicarb 22, Albumin 3.1, AG 19/delta gap 5.5 suggesting high AG acidosis with metabolic alkalosis - ABG on 09/27/16 reveals Alkalosis - Due to sepsis - Likely secondary to initial presentation of sepsis/suspicion for LA but LA is 1.1; decrease in Na secondary to medication (mirtazapine), or side effect - Continue to monitor as underlying infection is treated - UA unremarkable 6. Electrolyte abnormalities, acute, present on admission. Persists - Repleting electrolytes - Monitor with daily labs 7. Ongoing tobacco use, chronic. 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 Tachycardia, acute, present on admission. Under evaluation - Echocardiogram today reveals worsening mitral regurge. - May be secondary to ongoing cough, anxiety, infection, nebulizer treatment - Patient denies any cardiac symptoms of chest pain and palpitations - Address underlying causes, notably increased anxiety and coughing - Subclinical hyperthyroidism - Morphine 1-2mg IV Q6 PRN to help with anxiety and air hunger. Patient is allergic to Ativan 9. Relapsing remitting multiple sclerosis, chronic. Presumed stable - Patient admits to intermittent "fog" - Patient states symptoms are currently stable - Monitor - Home med [employer]: Order for pt to use own medication placed 10. Anxiety/depression, chronic. Presumed stable - Resume home medications ,: Hydroxyzine, mirtazapine, promethazine per [facility] 11. Tension-type headaches, chronic. Presumed stable - Resume home medications : Venlafaxine per [facility] 12. Chronic pain. Presumed stable - Patient reports oxycodone daily use; verified in [facility] - Available when necessary 13. GERD, chronic. Presumed stable - Resume daily PPI therapy PRN: Fever/nausea/bowel/pain GI: PPI Diet: General; bedside swallow eval to assess aspiration with cough DVT: Heparin every 8h IVF: NS 100 CODE STATUS: Full code Disposition: Pending clinical course, possible discharge in about 2-3 days. . Pain Evaluation: Adequate Pain Control GI Prophylaxis: Proton Pump Inhibitor VTE Prophylaxis: Sub-Q Heparin (Unfractionated) VTE Mechanical Devices: Intermittant Pneumatic CD Resuscitation Status: CPR: Attempt Resuscitation Attending Statement The patient was seen and examined together with Dr. Silver on 09/27/2016 and I agree with the history, exam and plan as outlined in the note above. . Etienne Silver DO September 27, 2016 16:10 Maldonado Parsons MD September 27, 2016 16:48
--- NOTE | 2016-09-27 19:07 | PROG NOTE ---
[address] [address] PROGRESS NOTE PATIENT: SHEEBA OCHOA : 1955 MR#: [id number] ADMIT: 09/23/2016 JOB ID: [id number] DATE: 09/27/2016 PROBLEM: 1. Acute pneumonitis. 2. Possible history of COPD. 3. Primary progressive multiple sclerosis. SUBJECTIVE: The patient has some shortness of breath. Has cough especially when speaking or active. No particular problems with sputum production. No chest pain, either pleuritic or otherwise. OBJECTIVE: Temperature 36.5, pulse of 95-110, respiratory rate low 20s, blood pressure 98/59 with a MAP of 68, O2 sat on BiPAP with an FiO2 of 40% on APAP with expiratory positive airway pressure of 7. Has an O2 saturation of 99%. I and O shows 2.4 L in, 4 L out. General appearance: No acute distress. Seems a bit confused, agitated, hyperactive in bed, playing with her various lines and tubes. Is appropriate in conversation. HEENT: Conjunctivae are pink. No scleral icterus. Chest: Fair breath sounds bilaterally. There are a few inspiratory crackles at the left lower lung field. No use of accessory muscles. Heart: Regular rhythm. Heart tones seem normal. Abdomen soft. Bowel tones present. Extremities: Trace to 1+ pedal edema. SCDs in place. LABORATORY STUDIES: White cell count is 15,800 with a moderate neutrophilia. White count is stable. Hemoglobin 9.7 and stable. Platelet count 399,000 and stable. Sodium 137, potassium 4, chloride 96, CO2 is 22, BUN 6, creatinine 0.4, calcium is 8.3, phosphorus 3, magnesium 1.8, transaminases normal in 21-32 range, alkaline phosphatase normal. Total protein 5.3, albumin 3.1, procalcitonin 0.6 and dropping. Urine for Legionella antigen is negative. Urine for streptococcal pneumoniae antigen is negative. Viral respiratory panel by PCR is negative. ASSESSMENT: 1. Pneumonitis, possibly suffering from a pneumonia, however, organism eludes us at this point. She is on broad-spectrum antibiotics. Clinically doing reasonably well from an oxygen standpoint. However, attempts to wean her off BiPAP to try to support her oxygenation with high-flow oxygen system has been fruitless. She deteriorates within seconds of donning the high-flow nasal cannula. Etiology unclear. Consideration has been given to aspiration though no apparent overt or occult dysphagia. The patient did have a good diuresis. Some of this lung dysfunction may be due to fluid overload, though I suspect it is multifactorial. Will continue with supporting diuresis and broad-spectrum antibiotics until the situation is clear. 2. Agitation. Seems almost slightly delirious. states she did this in 2011 when she had pneumonia at that time and, in fact, required intubation. He is hopeful that she will not have to be intubated. Oxygenation is reasonably good as long as she is not particularly agitated. However, with marked hyperactivity, O2 saturations drop egregiously requiring resettling her and continuing on with the BiPAP system. Etiology so far unclear. No hard evidence for bacterial infection other than an elevated procalcitonin. PLAN: 1. Continue a controlled diuresis. 2. Await microbiologic studies. 3. Continue current regimen, currently on steroids, broad-spectrum antibiotics and Lasix. 4. Chest x-ray. 5. Arterial blood gases. 6. Might consider dexmedetomidine infusion if the chest x-ray and blood gases permit us to sedate her a bit to control her overt hyperactive behavior. 7. Followup code 19462.
[2016-09-28] VITALS (13 sets, daily range): BP systolic 88–113; BP diastolic 54–76; PULSE 88–120; RESP 19–32; O2SAT 93–98
[2016-09-28] MEDS: Heparin 5,000 Unit/mL Inj SUBQ SCH ×3 (00:10→16:11)
[2016-09-28] MEDS: Piperacillin-Tazo 3.375 Gm Inj 3.375 GM in Dextrose 5% Minibag Plus 50 ML IV SCH ×3 (02:02→19:15)
[2016-09-28] MEDS: oxyCODONE-Acetamin 5-325 mg Tablet PO PRN ×4 (02:04→22:16)
[2016-09-28 04:59] LABS: BASOPHILS % (AUTO) 0.1 % (0-3); EOSINOPHILS % (AUTO) 0.9 % (0-5); MONOCYTES % (AUTO) 5.5 % (4-12); Mean Corpuscular Hemoglobin 27.7 pg (27.0-35.0); Mean Corpuscular Volume 80.1 fL (81-100); NEUTROPHILS % (AUTO) 80.5 % (40-74); Platelet Count 402 bil/L (150-400)
--- NOTE | 2016-09-28 04:59 | ABG ---
DateTimeAnalyzed 04:54:00 -_ pH ____7.454 - 7.350 7.450 pCO2 ___41.3__ -mmHg 35.0 45.0 pO2 ___84.3__ -mmHg 69.0 116 HCO3- ___28.5__ -mmol/L 22.0 26.0 ABE ____4.7__ -mmol/L -2.0 2.0 tHb ____9.5__ -g/dL O2Hb ___95.5__ -% COHb ____0.9__ -% MetHb ____0.9__ -% sO2 ___97.3__ -% FIO2 ___32.0__ -% PEEP ____7.0__ -cmH2O Set_RR ___14.0__ -b/min Vt __425.0__ -L Drawn By blf - Oxygen Device 2 AVAPS MODE - Date/Time Notified____ 04:58:00 -_ Spontaneous_RR ___32.0__ -b/min Oxygen Device 1 ____BIPAP - Notified By blf - Notified Whom IVANNA QUISNER RN -___ B 762 -mmHg tO2 ___12.9__ -Vol% Al test _Positive -
[2016-09-28 05:35] LABS: Magnesium 1.8 mg/dL (1.6-2.6); Phosphorus 2.9 mg/dL (2.5-4.9)
[2016-09-28] MEDS ORDERED: Potassium Chloride Oral 20 mEq SR Tab(K 3 - 3.7 & Creat < 2) PO ONE (05:55)
[2016-09-28] MEDS: Albuterol-Ipratropium 3 mL Inhalation Solution NEB SCH ×4 (08:15→20:21)
[2016-09-28] MEDS: Furosemide 10 mg/mL 2 mL Inj IVPUSH SCH (08:16)
[2016-09-28] MEDS: MethylprednisoLONE Sodium Succinate 40 mg/mL Inj IVPUSH SCH (08:17)
[2016-09-28] MEDS: levETIRAcetam 500 mg Tablet PO SCH ×2 (08:18→22:18)
[2016-09-28] MEDS: Ascorbic Acid 500 mg Tablet PO SCH (08:18)
[2016-09-28] MEDS: TECFIDERA 240 MG PO SCH ×2 (08:19→20:30)
[2016-09-28] MEDS: Pantoprazole 40 mg ER24 Tablet PO SCH (08:25)
--- NOTE | 2016-09-28 09:23 | DRSVH ---
PROCEDURE: X-RAY CHEST ONE VIEW, PORTABLE ([id number]) INDICATIONS: SHORT OF BREATH TECHNIQUE: One view of the chest was acquired. COMPARISON: [facility], CR, XR CHEST 1VW (PORTABLE), 09/27/2016, 11:18. FINDINGS: Surgical changes and devices: Left PICC present tip projected over the lower SVC. Lungs and pleura: There has been no significant change in bilateral patchy and interstitial opacities . Mediastinum: Mediastinal contours appear normal. Heart size is normal. Bones and chest wall: No suspicious bony lesions. Overlying soft tissues appear unremarkable. IMPRESSION: Stable positioning of left PICC and persistent edema and/or diffuse bilateral pneumonia r edemonstrated. Dictated by: Sandor Hernandez RRA Interpreted: Tee Ware MD on 09/28/2016 at 9:21 Transcribed by: GLORIA on 09/28/2016 at 9:22 Approved by: Tee Ware M.D. on 09/28/2016 at 10:09
[2016-09-28] MEDS: Nystatin 100,000 Unit/mL 5 mL Suspension PO SCH ×2 (10:51→22:18)
[2016-09-28] MEDS: 0.9% Sodium Chloride 1,000 ML IV SCH ×2 (10:57→19:45)
[2016-09-28] MEDS: Dexmedetomidine 400 mCg/100 mL 400 MCG in IV Premix 1 EACH IV SCH (11:39)
[2016-09-28] MEDS: Codeine-guaiFENesin 10 mL Syrup PO PRN ×2 (16:13→22:18)
[2016-09-28] MEDS ORDERED: KCl 40 mEq/D5W 500 mL 40 MEQ in IV Premix 1 EACH IV ONE (16:40)
--- NOTE | 2016-09-28 18:29 | PCM.PNMED ---
Subjective Date of Service September 28, 2016 Subjective Patient is feeling better, has an appetite, breathing better, voiding normally, no stool since arriving here. Exam Vital Signs Vital Sign - Last Date Time Temp Pulse Resp B/P Pulse Ox O2 Delivery O2 Flow Rate FiO2 09/28/16 16:07 CPAP/BIPAP 09/28/16 16:02 36.6 94 20 106/65 98 2.00 09/28/16 08:17 32 Intake and Output 09/27/16 09/27/16 09/28/16 Cumulative From/Thru 15:00 23:00 07:00 09/23/16 21:28 - 09/28/16 06:21 Intake Total 744 ml 618 ml 24288 ml Output Total 1200 ml 400 ml 9950 ml Balance -456 ml 218 ml 2024 ml Intake Oral 240 ml 200 ml 4048 ml IV Total 504 ml 418 ml 7926 ml Output Urine Total 1200 ml 400 ml 9950 ml # Voids 5 # Bowel Movements 0 Exam General: Frail-appearing woman, alert and oriented 3, cooperative HEENT: Atraumatic, sclera anicteric. BiPAP mask in place Cardiac: Tachycardic with rate approximately 110s. No murmurs appreciated Respiratory: Bibasilar crackles. Abdomen: Soft, nontender, nondistended Extremities: Thin, no edema present Skin: Warm and dry Pulses: Radial equal and intact. Dorsalis pedis equal bilaterally Neuro: Grossly neurologically intact Psych: Appropriate mood and affect IVs and Medications IV Fluids NS 100mls/hr IV Medications Reviewed: Medications were reviewed in detail Lab and Diagnostics Laboratory Tests Test 09/28/16 04:30 09/28/16 10:45 White Blood Count 15.2th/mm3 (3.8-10.1) Red Blood Count 3.47mil/mm3 (3.90-5.20) Hemoglobin 9.6g/dL (12.0-15.6) Hematocrit 27.8% (35.0-46.0) Mean Corpuscular Volume 80.1fL (81-100) Mean Corpuscular Hemoglobin 27.7pg (27.0-35.0) Mean Corpuscular Hemoglobin Concent 34.5% (32.0-37.0) Red Cell Distribution Width 15.2% (12.3-15.4) Platelet Count 402bil/L (150-400) Neutrophils (%) (Auto) 80.5% (40-74) Lymphocytes (%) (Auto) 12.1% (14-46) Monocytes (%) (Auto) 5.5% (4-12) Eosinophils (%) (Auto) 0.9% (0-5) Basophils (%) (Auto) 0.1% (0-3) Sodium Level 135mEq/L (134-144) Potassium Level 3.1mEq/L (3.5-5.2) 3.4mEq/L (3.5-5.2) Chloride Level 95mEq/L (97-108) Carbon Dioxide Level 27mmol/L (18-29) Blood Urea Nitrogen 12mg/dL (6-24) Creatinine 0.46mg/dL (0.57-1.00) Estimat Glomerular Filtration Rate 199mL/min (>59) Glucose Level 104mg/dL (60-99) Calcium Level 9.2mg/dL (8.5-10.1) Phosphorus Level 2.9mg/dL (2.5-4.9) Magnesium Level 1.8mg/dL (1.6-2.6) Total Bilirubin 0.3mg/dL (0.0-1.2) Aspartate Amino Transf (AST/SGOT) 24U/L (0-50) Alanine Aminotransferase (ALT/SGPT) 20U/L (0-32) Alkaline Phosphatase 127U/L (25-165) Total Protein 5.5g/dL (6.4-8.4) Albumin 3.1g/dL (3.4-5.0) Procalcitonin 0.38ng/mL (0.00-0.08) Microbiology 09/23/16 Blood Culture - Preliminary, Resulted No growth at 2 days; culture examined... 09/23/16 Adenovirus DNA (PCR) - Final, Complete Not Detected 09/23/16 Coronavirus 229E PCR - Final, Complete Not Detected 09/23/16 Coronavirus HKU1 PCR - Final, Complete Not Detected 09/23/16 Coronavirus NL63 PCR - Final, Complete Not Detected 09/23/16 Coronavirus OC43 PCR - Final, Complete Not Detected 09/23/16 Influenza Type A (PCR) - Final, Complete Not Detected 09/23/16 Influenza Type B (PCR) - Final, Complete Not Detected 09/23/16 Human Metapneumovirus (PCR) (ELDER) - Final, Complete Not Detected 09/23/16 Rhinovirus (PCR)(ELDER) - Final, Complete Not Detected 09/23/16 Parainfluenza Virus Type 1 (PCR) - Final, Complete Not Detected 09/23/16 Parainfluenza Virus Type 2 (PCR) - Final, Complete Not Detected 09/23/16 Parainfluenza Virus Type 3 (PCR) - Final, Complete Not Detected 09/23/16 Parainfluenza Virus Type 4 (NAAT) - Final, Complete Not Detected 09/23/16 Respiratory Syncytial Virus (PCR)MO - Final, Complete Not Detected 09/23/16 Chlamydia pneumoniae (PCR) - Final, Complete Not Detected 09/23/16 Mycoplasma pneumoniae DNA Detection - Final, Complete 09/24/16 Streptococcus pneumoniae Ag Screen - Final, Complete Result Diagram: 09/28/16 0430 09/28/16 1045 X-Rays, CTs and MRIs X-RAY CHEST ONE VIEW, PORTABLE IMPRESSION: Marked diffuse interval worsening of diffuse bilateral patchy opacities. This could be related to worsening infection such as pneumonia. However, development of diffuse edema or ARDS cannot be excluded. Dictated by: Tiffany Womack M.D. on 09/26/2016 at 7:46 X-RAY CHEST ONE VIEW, PORTABLE IMPRESSION: Increasing bilateral mid/bibasilar airspace opacities suggesting worsening pneumonia. Dictated by: Sandor Hernandez RR Interpreted: Constance Shah MD on 09/24/2016 at 9:07 . Cardiac Echo Impressions Echocardiogram Report Interpretation Summary The study quality was technically difficult. Left ventricular ejection fraction is estimated to be 50 +/- 5%. There are no obvious focal wall motion abnormalities noted but poor endocardial definition reduces the sensitivity for the detection of such. There is mild to moderate mitral regurgitation. There are multiple regurgitant jets present. Compared to the prior echo study, there has been an increase in the severity of mitral regurgitation. Electronically signed by: Mike Rueda Physician:09/27/2016 11:36 AM . Assessment & Plan Patient is a 61-year-old woman with a history of relapsing remitting multiple sclerosis, seizure disorder suspected to be secondary to multiple sclerosis or electrolyte imbalance, history of pneumonia requiring intubation, tension headaches, chronic pain, ongoing tobacco use, and depression presenting as a direct admit from urgent care for ongoing symptoms of productive cough, tachycardia, and congestion. She was admitted for evaluation of suspected community-acquired pneumonia in the setting of undiagnosed COPD. Hospital day # 5. 1. Sepsis, acute, present on admission. Improving - On admit: WBC 20.3 improved to 15.2 - Due to bilateral CAP in a pt with underlying COPD. Initially suspected of aspiration due to bilateral pneumonia and MS history. Barium swallow ordered for aspiration - PCT 14.31; LA 1.1. Streptococcus pneumo antigen and legionella negative. Blood culture negative - Initial Abx: ceftriaxone and azithromycin which was broadened to Zosyn and azithromycin on 09/26/16 given worsening of bilateral pneumonia on chest x-ray and concern for aspiration -Chest x-ray shows minimal improvement of bilateral pneumonia 2. Community Acquired Pneumonia, present on admission. Active - Treating pneumonia as above - Solu-Medrol 60mg IV daily per Pulmonary - Pulmonology consult. Recommendations per Pulm appreciated - Oxygen and delivery mechanism managed by Pulm, much appreciated. Now patient again on O2 by nasal cannula. - Echo today indicates worsening mitral regurgitation, now mild to moderate, likely contributing to her hypoxemia, but not the sole etiology of it. 3. Suspected acute exacerbation of undiagnosed COPD, present on admission. Under evaluation - Patient has long time tobacco use; reports recent sick contacts; denies diagnosis of COPD - CXR 09/21: Bronchitis, left lower lobe pneumonia - Patient needs outpatient pulmonary function test - Duoneb qidwa + accuneb q2h prn 4. Metabolic acidosis, pure. Acute. Present on admission. Improving. ABG on 09/28 indicating pH of 7.454. - On admit: Na 130, Cl 91, bicarb 17, albumin 4.3; AG 22/delta gap 10; 1.43 ratio, - On 09/27/16: Na 137, Cl 96, bicarb 22, Albumin 3.1, AG 19/delta gap 5.5 suggesting high AG acidosis with metabolic alkalosis - ABG on 09/27/16 reveals Alkalosis - Due to sepsis - Likely secondary to initial presentation of sepsis/suspicion for LA but LA is 1.1; decrease in Na secondary to medication (mirtazapine), or side effect - Continue to monitor as underlying infection is treated - UA unremarkable 6. Electrolyte abnormalities, acute, present on admission. Persists - Repleting electrolytes - Monitor with daily labs 7. Ongoing tobacco use, chronic. Presumed stable - Patient reports decrease of daily use - Nicotine patch daily plus lozenges as needed - Continue to savings counselor on cessation 8. Tachycardia, acute, present on admission. Under evaluation - Echocardiogram today reveals worsening mitral regurge. - May be secondary to ongoing cough, anxiety, infection, nebulizer treatment - Patient denies any cardiac symptoms of chest pain and palpitations - Address underlying causes, notably increased anxiety and coughing - Subclinical hyperthyroidism - 9. Relapsing remitting multiple sclerosis, chronic. Presumed stable - Patient admits to intermittent "fog" - Patient states symptoms are currently stable - Monitor - Home med [employer]: Order for pt to use own medication placed 10. Anxiety/depression, chronic. Presumed stable - Resume home medications ,: Hydroxyzine, mirtazapine, promethazine per [facility] 11. Tension-type headaches, chronic. Presumed stable - Resume home medications : Venlafaxine per [facility] 12. Chronic pain. Presumed stable - Patient reports oxycodone daily use; verified in [facility] - Available when necessary 13. GERD, chronic. Presumed stable - Resume daily PPI therapy PRN: Fever/nausea/bowel/pain GI: PPI Diet: General; bedside swallow eval to assess aspiration with cough DVT: Heparin every 8h IVF: NS 100 CODE STATUS: Full code Disposition: Pending clinical course, possible discharge in about 2-3 days. . Pain Evaluation: Adequate Pain Control GI Prophylaxis: Proton Pump Inhibitor VTE Prophylaxis: Sub-Q Heparin (Unfractionated) VTE Mechanical Devices: Intermittant Pneumatic CD Resuscitation Status: CPR: Attempt Resuscitation Attending Statement The patient was seen and examined together with Dr. Silver on 09/28/2016 and I agree with the history, exam and plan as outlined in the note above. . Etienne Silver DO September 28, 2016 16:53 Maldonado Parsons MD September 30, 2016 19:00
[2016-09-29] VITALS (11 sets, daily range): BP systolic 97–116; BP diastolic 59–78; PULSE 101–125; RESP 17–20; O2SAT 90–100
[2016-09-29] MEDS: Heparin 5,000 Unit/mL Inj SUBQ SCH ×3 (00:07→18:03)
[2016-09-29] MEDS: Piperacillin-Tazo 3.375 Gm Inj 3.375 GM in Dextrose 5% Minibag Plus 50 ML IV SCH ×2 (02:11→11:43)
[2016-09-29 03:51] LABS: BASOPHILS % (AUTO) 0.1 % (0-3); EOSINOPHILS % (AUTO) 1.5 % (0-5); MONOCYTES % (AUTO) 8.2 % (4-12); Mean Corpuscular Hemoglobin 27.3 pg (27.0-35.0); Mean Corpuscular Volume 80.9 fL (81-100); NEUTROPHILS % (AUTO) 74.7 % (40-74); Platelet Count 383 bil/L (150-400)
[2016-09-29] MEDS: 0.9% Sodium Chloride 1,000 ML IV SCH ×2 (05:06→15:45)
[2016-09-29] MEDS: Codeine-guaiFENesin 10 mL Syrup PO PRN ×2 (05:54→14:05)
[2016-09-29] MEDS ORDERED: Azithromycin Inj 500 MG in Dextrose 5% w/Vial Mate 250 ML IV SCH (08:30)
[2016-09-29] MEDS: TECFIDERA 240 MG PO SCH ×2 (08:30→20:45)
[2016-09-29] MEDS: MethylprednisoLONE Sodium Succinate 40 mg/mL Inj IVPUSH SCH (09:03)
[2016-09-29] MEDS: Albuterol-Ipratropium 3 mL Inhalation Solution NEB SCH ×4 (09:17→20:17)
--- NOTE | 2016-09-29 09:19 | PCM.PNMED ---
Subjective Date of Service September 29, 2016 Subjective Patient is alert, awake, cooperative, unable to state her last name, unaware of the date, does know she is at [facility]. She is coughing intermittently without production. Nursing reports some restlessness and agitation during the night. Exam Vital Signs Vital Sign - Last Date Time Temp Pulse Resp B/P Pulse Ox O2 Delivery O2 Flow Rate FiO2 09/29/16 04:54 36.7 116 17 115/68 95 Room Air 09/28/16 22:04 2.00 09/28/16 08:17 32 Intake and Output 09/28/16 09/28/16 09/29/16 Cumulative From/Thru 15:00 23:00 07:00 09/23/16 21:28 - 09/29/16 06:30 Intake Total 1168 ml 1367 ml 96379 ml Output Total 1150 ml 350 ml 66285 ml Balance 18 ml 1017 ml 3059 ml Intake Oral 800 ml 400 ml 5248 ml IV Total 368 ml 967 ml 9261 ml Output Urine Total 1150 ml 350 ml 81464 ml # Voids 5 # Bowel Movements 1 1 Exam General: Frail-appearing woman, alert and oriented 3, cooperative HEENT: Atraumatic, sclera anicteric. BiPAP mask in place Cardiac: Tachycardic with rate approximately 110s. No murmurs appreciated Respiratory: Bibasilar crackles. Abdomen: Soft, nontender, nondistended Extremities: Thin, no edema present Skin: Warm and dry Pulses: Radial equal and intact. Dorsalis pedis equal bilaterally Neuro: Grossly neurologically intact Psych: Appropriate mood and affect IVs and Medications Medications Reviewed: Medications were reviewed in detail Lab and Diagnostics Result Diagram: 09/29/16 0340 09/29/16 0340 X-Rays, CTs and MRIs X-RAY CHEST ONE VIEW, PORTABLE IMPRESSION: Marked diffuse interval worsening of diffuse bilateral patchy opacities. This could be related to worsening infection such as pneumonia. However, development of diffuse edema or ARDS cannot be excluded. Dictated by: Tiffany Womack M.D. on 09/26/2016 at 7:46 X-RAY CHEST ONE VIEW, PORTABLE IMPRESSION: Increasing bilateral mid/bibasilar airspace opacities suggesting worsening pneumonia. Dictated by: Sandor QUINTANILLA Interpreted: Constance Shah MD on 09/24/2016 at 9:07 . Cardiac Echo Impressions Echocardiogram Report Interpretation Summary The study quality was technically difficult. Left ventricular ejection fraction is estimated to be 50 +/- 5%. There are no obvious focal wall motion abnormalities noted but poor endocardial definition reduces the sensitivity for the detection of such. There is mild to moderate mitral regurgitation. There are multiple regurgitant jets present. Compared to the prior echo study, there has been an increase in the severity of mitral regurgitation. Electronically signed by: Mike Rueda Physician:09/27/2016 11:36 AM . Assessment & Plan Patient is a 61-year-old woman with a history of relapsing remitting multiple sclerosis, seizure disorder suspected to be secondary to multiple sclerosis or electrolyte imbalance, history of pneumonia requiring intubation, tension headaches, chronic pain, ongoing tobacco use, and depression presenting as a direct admit from urgent care for ongoing symptoms of productive cough, tachycardia, and congestion. She was admitted for evaluation of suspected community-acquired pneumonia in the setting of undiagnosed COPD. Hospital day # 5. 1. Sepsis, acute, present on admission. Improving - On admit: WBC 20.3 improved to 15.5 - Due to bilateral CAP in a pt with underlying COPD. Initially suspected of aspiration due to bilateral pneumonia and MS history. Barium swallow ordered for aspiration - PCT 14.31; LA 1.1. Streptococcus pneumo antigen and legionella negative. Blood culture negative - Initial Abx: ceftriaxone and azithromycin which was broadened to Zosyn and azithromycin on 09/26/16 given worsening of bilateral pneumonia on chest x-ray and concern for aspiration -Chest x-ray shows minimal improvement of bilateral pneumonia 2. Community Acquired Pneumonia, present on admission. Active - Treating pneumonia as above - Solu-Medrol 60mg IV daily per Pulmonary discontinued on 09/29/16 - Pulmonology consult. Recommendations per Pulm appreciated - Oxygen and delivery mechanism managed by Pulm, much appreciated. Bipap or O2 by nasal cannula overnight, now on room air with O2 at 95% - Echo indicates worsening mitral regurgitation, now mild to moderate, likely contributing to her hypoxemia, but not the sole etiology of it. - Procalcitonin has trended down to 0.27 - Stop antibiotics this afternoon 3. Suspected acute exacerbation of undiagnosed COPD, present on admission. Under evaluation - Patient has long time tobacco use; reports recent sick contacts; denies diagnosis of COPD - CXR 04/25: Bronchitis, left lower lobe pneumonia - Patient needs outpatient pulmonary function test - Duoneb qidwa + accuneb q2h prn 4. Metabolic acidosis, pure. Acute. Present on admission. Improving. ABG on 09/28 indicating pH of 7.454. - On admit: Na 130, Cl 91, bicarb 17, albumin 4.3; AG 22/delta gap 10; 1.43 ratio, - On 09/27/16: Na 137, Cl 96, bicarb 22, Albumin 3.1, AG 19/delta gap 5.5 suggesting high AG acidosis with metabolic alkalosis - ABG on 09/27/16 reveals Alkalosis - 09/29/16 AG is 14 - Due to sepsis - Likely secondary to initial presentation of sepsis/suspicion for LA but LA is 1.1; decrease in Na secondary to medication (mirtazapine), or side effect - Continue to monitor as underlying infection is treated - UA unremarkable 6. Electrolyte abnormalities, acute, present on admission. Persists - Repleting electrolytes - Monitor with daily labs 7. Ongoing tobacco use, chronic. Presumed stable - Patient reports decrease of daily use - Nicotine patch daily plus lozenges as needed - Continue to director of counseling on cessation 8. Tachycardia, acute, present on admission. Under evaluation - Echocardiogram today reveals worsening mitral regurge. - May be secondary to ongoing cough, anxiety, infection, nebulizer treatment - Patient denies any cardiac symptoms of chest pain and palpitations - Address underlying causes, notably increased anxiety and coughing - Subclinical hyperthyroidism - 9. Relapsing remitting multiple sclerosis, chronic. Presumed stable - Patient admits to intermittent "fog" - Patient states symptoms are currently stable - Monitor - Home med [employer]: Order for pt to use own medication placed 10. Anxiety/depression, chronic. Presumed stable - Resume home medications ,: Hydroxyzine, mirtazapine, promethazine per [facility] 11. Tension-type headaches, chronic. Presumed stable - Resume home medications : Venlafaxine per [facility] 12. Chronic pain. Presumed stable - Patient reports oxycodone daily use; verified in [facility] - Available when necessary 13. GERD, chronic. Presumed stable - Resume daily PPI therapy PRN: Fever/nausea/bowel/pain GI: PPI Diet: General; bedside swallow eval to assess aspiration with cough DVT: Heparin every 8h IVF: NS 100 CODE STATUS: Full code Disposition: Pending clinical course, possible discharge in about 2-3 days. . Pain Evaluation: Adequate Pain Control GI Prophylaxis: Proton Pump Inhibitor VTE Prophylaxis: Sub-Q Heparin (Unfractionated) VTE Mechanical Devices: Intermittant Pneumatic CD Resuscitation Status: CPR: Attempt Resuscitation Attending Statement The patient was seen and examined together with Dr. Silver on 09/29/2016 and I agree with the history, exam and plan as outlined in the note above. . Etienne Silver DO September 29, 2016 09:19 Maldonado Parsons MD September 30, 2016 19:01
[2016-09-29] MEDS: Pantoprazole 40 mg ER24 Tablet PO SCH (10:22)
[2016-09-29] MEDS: Furosemide 10 mg/mL 2 mL Inj IVPUSH SCH (10:23)
[2016-09-29] MEDS: levETIRAcetam 500 mg Tablet PO SCH ×2 (10:43→20:45)
[2016-09-29] MEDS: Nystatin 100,000 Unit/mL 5 mL Suspension PO SCH ×2 (11:35→20:46)
[2016-09-29] MEDS: Ascorbic Acid 500 mg Tablet PO SCH (11:37)
[2016-09-29] MEDS: Dexmedetomidine 400 mCg/100 mL 400 MCG in IV Premix 1 EACH IV SCH (11:45)
--- NOTE | 2016-09-29 11:56 | DRSVH ---
PROCEDURE: X-RAY BARIUM SWALLOW WITH FOOD & VIDEOGRAPHY ([id number]) INDICATIONS: possible aspiration TECHNIQUE: Examination was conducted in conjunction with speech pathology per standard protocol. In the lateral projection, filming was performed of the patient swallowing. AP projection filming may also be performed with patient swallowing. COMPARISON: [facility], , BARIUM SWALLOW/FOOD & VIDEO, 08/06/2011, 13:29. FINDINGS: Function: The oral preparatory phase appears normal, with proper containment. The subsequent oral pr opulsive phase, pharyngeal phase, and esophageal phase of swallowing also appear normal with all prof fered substances. No laryngotracheal penetration or aspiration. No pathologic vallecular pooling. Morphology: No cricopharyngeal bar is identified. No cervical esophageal webs. No Zenker's diverti culum. No strictures. Prominent cricopharyngeal depression. The attending physician was personally present in the room during the examination. IMPRESSION: Prominent cricopharyngeal depression is noted and no definite Zenker's diverticulum is se en otherwise normal speech swallow. Dictated by: Sandor Hernandez Clarissa Interpreted: Samuel Mendoza MD on 09/29/2016 at 11:54 Transcribed by: YUNI on 09/29/2016 at 11:55 Approved by: Samuel Mendoza M.D. on 09/29/2016 at 14:33
[2016-09-29] MEDS: oxyCODONE-Acetamin 5-325 mg Tablet PO PRN (12:23)
--- NOTE | 2016-09-29 17:07 | ST BAR ---
[address] [address] SPEECH BARIUM SWALLOW STUDY PATIENT: SHEEBA OCHOA : 1955 MR#: [id number] ADMIT: 09/23/2016 JOB ID: [id number] DATE OF SERVICE: 09/29/2016 THERAPIST: Ceci Urbina MA, CCC-PROFESSOR OF NURSING REFERRING PHYSICIAN: Dr. Silver. PRIMARY DIAGNOSIS: Pneumonia. TREATMENT DIAGNOSIS: Dysphagia. VISITS FROM START OF CARE: One. FURTHER TREATMENT: Not recommended at this time. HICN #: N/A. START OF CARE DATE: 09/29/2016 ONSET DATE: 09/23/2016 CURRENT RELEVANT HISTORY: This very pleasant, 61-year-old female was seen for an inpatient modified barium swallow study due to questions of aspiration. The patient is currently admitted with community-acquired pneumonia as well as sepsis and suspected acute exacerbation of undiagnosed COPD. The patient has a history of relapsing, remitting multiple sclerosis, seizure disorder suspected to be secondary to multiple sclerosis or electrolyte imbalance, history of pneumonia requiring intubation, tension headaches, chronic pain and ongoing tobacco use and depression. The patient was presented to this hospital with ongoing symptoms of productive cough, tachycardia and congestion. The patient was admitted for evaluation of suspected community-acquired pneumonia in the setting of undiagnosed COPD. The patient did not demonstrate any overt signs or symptoms of aspiration during her bedside swallow evaluation. This evaluation is being completed in order to further assess the patient's swallow function and to rule out silent aspiration due to multiple episodes of pneumonia. MEDICAL NECESSITY: Aspiration. PRIOR LEVEL OF FUNCTION: Independent. Tolerating general textures and thin liquids. PREVIOUS TREATMENT: None. RELEVANT HOSPITALIZATIONS: The patient has had numerous hospitalizations over the past five years; most recently in May 2015 with a seizure, in March 2012 with pneumonia, and in May 2011 with bilateral pneumonia. The patient received a modified barium swallow study at this hospital on August 08, 2011, at which time the recommendations were for a general or mechanical soft diet with thin liquids. No aspiration or laryngeal penetration was seen on that study. FUNCTIONAL LIMITATIONS: Coughing. BASELINE TEST MEASURES: The patient was seated and viewed laterally. PO trials of thin liquid barium, pureed barium, dysphagia mechanical barium, mechanical soft and general textures of barium were given as well as a barium pill tablet with water. Oral phase: Labial seal was complete. Mastication was complete. The patient was noted to be missing her bottom back molars and has a top plate denture. The patient's anterior-posterior transit was mildly slow but within grossly normal limits. Bolus prep appeared complete. Pharyngeal phase: Premature spillage was observed with a teaspoon of thin liquid to the level of the piriform sinuses. However, no further premature spillage was observed. Swallow reflex was prompt. Epiglottic transition was within functional limits. No vallecular or piriform sinus residue was observed. There was mild residue in the proximal esophagus following trials of soft and general textures; however this cleared with a followup swallow. Laryngeal penetration: No. Aspiration: No. Esophageal phase. Please see radiology report for further details. Nonobstructing cervical osteophytes were observed. There was mild residue in the proximal esophagus following trials of soft and general textures; however this cleared with a followup swallow. The patient cleared the barium pill tablet without difficulty or hesitation through the pharynx and the proximal esophagus. EVALUATION RESULTS: This very pleasant, 61-year-old female was seen for an initial inpatient modified barium swallow study due to concerns of aspiration in the current setting of sepsis, pneumonia, and multiple sclerosis. The patient presents today with a functional swallow and did not demonstrate any laryngeal penetration or aspiration during the study. Diet recommendations are for a mechanical soft diet with thin liquids due to the patient's missing molars and ill-fitting top denture plate. Pills should be administered as tolerated. It is recommended that the patient take small bites and small sips and sit bolt upright for all p.o. intake. No further swallowing therapy or treatment is warranted at this time. Thank you very much for this consult. GURMEET
[2016-09-30] MEDS: Heparin 5,000 Unit/mL Inj SUBQ SCH ×2 (00:30→08:38)
[2016-09-30] MEDS: 0.9% Sodium Chloride 1,000 ML IV SCH ×2 (01:45→11:45)
[2016-09-30 04:25] VITALS: BP 110/75; PULSE 110; RESP 18; O2SAT 95
[2016-09-30 05:53] VITALS: PULSE 99
[2016-09-30 06:19] LABS: BASOPHILS % (AUTO) 0.2 % (0-3); EOSINOPHILS % (AUTO) 1.6 % (0-5); MONOCYTES % (AUTO) 8.6 % (4-12); Mean Corpuscular Hemoglobin 27.4 pg (27.0-35.0); Mean Corpuscular Volume 81.2 fL (81-100); NEUTROPHILS % (AUTO) 64.6 % (40-74); Platelet Count 396 bil/L (150-400)
[2016-09-30 08:00] VITALS: PULSE 112
[2016-09-30] MEDS: Albuterol-Ipratropium 3 mL Inhalation Solution NEB SCH ×2 (08:09→11:00)
[2016-09-30 08:10] VITALS: PULSE 114; RESP 20; O2SAT 90
[2016-09-30] MEDS: TECFIDERA 240 MG PO SCH (08:25)
[2016-09-30] MEDS: Nystatin 100,000 Unit/mL 5 mL Suspension PO SCH (08:26)
[2016-09-30] MEDS: Pantoprazole 40 mg ER24 Tablet PO SCH (08:26)
[2016-09-30] MEDS: Ascorbic Acid 500 mg Tablet PO SCH (08:28)
[2016-09-30] MEDS: levETIRAcetam 500 mg Tablet PO SCH (08:29)
[2016-09-30 08:30] VITALS: BP 109/69; PULSE 121; RESP 20; O2SAT 92
[2016-09-30] MEDS: Furosemide 10 mg/mL 2 mL Inj IVPUSH SCH (08:30)
[2016-09-30] MEDS: oxyCODONE-Acetamin 5-325 mg Tablet PO PRN ×2 (08:53→13:53)
[2016-09-30 12:27] VITALS: BP 100/63; PULSE 117; RESP 20; O2SAT 96
--- NOTE | 2016-09-30 14:17 | PCM.DIMED ---
Etienne Silver 09/30/16 1417: Discharge Instructions Date of Service September 30, 2016 Dates of Hospitalization Sep 23, 2016 at 19:40 Discharge Diagnosis Discharge Diagnosis Sepsis, Community Acquired Pneumonia Medication Instructions No new medications at discharge, antibiotics completed in the hospital. Test Results Laboratory Tests Test 09/30/16 05:55 White Blood Count 10.4th/mm3 (3.8-10.1) Red Blood Count 3.29mil/mm3 (3.90-5.20) Hemoglobin 9.0g/dL (12.0-15.6) Hematocrit 26.7% (35.0-46.0) Mean Corpuscular Volume 81.2fL (81-100) Mean Corpuscular Hemoglobin 27.4pg (27.0-35.0) Mean Corpuscular Hemoglobin Concent 33.7% (32.0-37.0) Red Cell Distribution Width 15.4% (12.3-15.4) Platelet Count 396bil/L (150-400) Neutrophils (%) (Auto) 64.6% (40-74) Lymphocytes (%) (Auto) 23.1% (14-46) Monocytes (%) (Auto) 8.6% (4-12) Eosinophils (%) (Auto) 1.6% (0-5) Basophils (%) (Auto) 0.2% (0-3) Sodium Level 141mEq/L (134-144) Potassium Level 3.3mEq/L (3.5-5.2) Chloride Level 99mEq/L (97-108) Carbon Dioxide Level 27mmol/L (18-29) Blood Urea Nitrogen 12mg/dL (6-24) Creatinine 0.44mg/dL (0.57-1.00) Estimat Glomerular Filtration Rate 210mL/min (>59) Glucose Level 92mg/dL (60-99) Lactic Acid Level 1.0mmol/L (0.4-2.0) Calcium Level 9.0mg/dL (8.5-10.1) Total Bilirubin 0.3mg/dL (0.0-1.2) Aspartate Amino Transf (AST/SGOT) 30U/L (0-50) Alanine Aminotransferase (ALT/SGPT) 22U/L (0-32) Alkaline Phosphatase 108U/L (25-165) Total Protein 5.5g/dL (6.4-8.4) Albumin 3.6g/dL (3.4-5.0) Microbiology 09/23/16 Blood Culture - Final, Complete NO GROWTH AFTER 5 DAYS 09/23/16 Adenovirus DNA (PCR) - Final, Complete Not Detected 09/23/16 Coronavirus 229E PCR - Final, Complete Not Detected 09/23/16 Coronavirus HKU1 PCR - Final, Complete Not Detected 09/23/16 Coronavirus NL63 PCR - Final, Complete Not Detected 09/23/16 Coronavirus OC43 PCR - Final, Complete Not Detected 09/23/16 Influenza Type A (PCR) - Final, Complete Not Detected 09/23/16 Influenza Type B (PCR) - Final, Complete Not Detected 09/23/16 Human Metapneumovirus (PCR) (ELDER) - Final, Complete Not Detected 09/23/16 Rhinovirus (PCR)(ELDER) - Final, Complete Not Detected 09/23/16 Parainfluenza Virus Type 1 (PCR) - Final, Complete Not Detected 09/23/16 Parainfluenza Virus Type 2 (PCR) - Final, Complete Not Detected 09/23/16 Parainfluenza Virus Type 3 (PCR) - Final, Complete Not Detected 09/23/16 Parainfluenza Virus Type 4 (NAAT) - Final, Complete Not Detected 09/23/16 Respiratory Syncytial Virus (PCR)GA - Final, Complete Not Detected 09/23/16 Chlamydia pneumoniae (PCR) - Final, Complete Not Detected 09/23/16 Mycoplasma pneumoniae DNA Detection - Final, Complete 09/24/16 Streptococcus pneumoniae Ag Screen - Final, Complete Diet Heart Healthy Activity No restrictions Call your provider Fever or Chills, Shortness of breath, Bleeding, Chest pain, Excessive diarrhea, Weakness (unilateral) Patient Instructions Please do everything you can do to stay healthy and not return to the hospital: STOP SMOKING! Get your doctor's help and your 's help. It will make a big difference in your life! Exercise, eat well, and drink around 48 oz of water daily. Follow-up Provider: Tee Elliott MD Follow-up with PCP in: 1 week Maldonado Parsons MD 09/30/16 3640: Discharge Instructions Attending's Statement The patient was seen and examined together with Dr. Silver on 09/30/2016 and I agree with the history, exam and plan as outlined in the note above. . Etienne Silver DO September 30, 2016 14:17 Maldonado Parsons MD September 30, 2016 19:02
--- NOTE | 2016-09-30 18:25 | PCM.DC.MED ---
Discharge Summary Date of Service September 30, 2016 Dates of Hospitalization Date of Hospital Admission Sep 23, 2016 at 19:40 Date of Discharge: September 30, 2016 Providers: Admitting Physician: April Horan DO Primary Care Physician: Tee Elliott MD Attending Physician: April Horan DO Diagnosis at Time of Discharge Diagnosis at Time of Discharge Sepsis, Community Acquired Pneumonia Consultations Cali Augustine M.D., hard hat diver Procedures XRay, CTs & MRIs X-RAY CHEST ONE VIEW, PORTABLE IMPRESSION: Marked diffuse interval worsening of diffuse bilateral patchy opacities. This could be related to worsening infection such as pneumonia. However, development of diffuse edema or ARDS cannot be excluded. X-RAY CHEST ONE VIEW, PORTABLE IMPRESSION: Increasing bilateral mid/bibasilar airspace opacities suggesting worsening pneumonia. ECG 12 Lead 09/26/2016 Sinus tachycardia with rate of 121, incomplete right bundle branch block, prolonged QT interval Cardiac Echo Impression Interpretation Summary The study quality was technically difficult. Left ventricular ejection fraction is estimated to be 50 +/- 5%. There are no obvious focal wall motion abnormalities noted but poor endocardial definition reduces the sensitivity for the detection of such. There is mild to moderate mitral regurgitation. There are multiple regurgitant jets present. Compared to the prior echo study, there has been an increase in the severity of mitral regurgitation. 09/27/2016 11:36 AM . Brief History 61yo woman with relapsing remitting multiple sclerosis, seizure disorder, chronic headaches, Hx of pneumonia requiring intubation several years ago, depression, previously undiagnosed COPD, and active cigarette smoking who was admitted 09/24 with a several day Hx of frequent productive cough and mild dyspnea after presenting to Urgent Care and was found to have significant Room Air hypoxia (SpO2 in the 70s). She was initially admitted with a diagnosis of Community Acquired Pneumonia and acute exacerbation of COPD. After admission, her pCXR had progressive infiltrates concerning for worsening pneumonia, so her abx regimen was broadened to piperacillin-tazobactam and her steroids were stopped. Overnight, she had worsening dyspnea and hypoxia on nasal cannula oxygen. She had continued hypoxia and respiratory distress on face mask oxygen. pCXR revealed progressive alveolar filling and interstitial infiltrates. She was subsequently transferred to the Progressive Care Unit and started in high flow nasal cannula O2. Today, she was advanced to BiPAP therapy for continued respiratory distress despite adequate SpO2. She was given a single dose of IV lorazepam 0.5mg for tachypnea but she became significantly confused and disoriented. Pulmonary Medicine was consulted to assist in the evaluation and management of this patient. Hospital Course Patient is a 61-year-old woman with a history of relapsing remitting multiple sclerosis, seizure disorder suspected to be secondary to multiple sclerosis or electrolyte imbalance, history of pneumonia requiring intubation, tension headaches, chronic pain, ongoing tobacco use, and depression presenting as a direct admit from urgent care for ongoing symptoms of productive cough, tachycardia, and congestion. She was admitted for evaluation of suspected community-acquired pneumonia in the setting of undiagnosed COPD. 1. Sepsis, acute, present on admission. Resolved - On admit: WBC 20.3 improved to 15.5, with patient energetic and asymptomatic this leukocytosis is now attributed to steroids. - Due to bilateral CAP in a pt with underlying COPD. Initially suspected of aspiration due to bilateral pneumonia and MS history. Barium swallow was ordered for aspiration concerns, and was found to be normal - Pro calcitonin 14.31 initially, resolved to normal limits; LA 1.1. Streptococcus pneumo antigen and legionella negative. Blood culture negative - Initial Abx: ceftriaxone and azithromycin which was broadened to Zosyn and azithromycin on 09/26/16 given worsening of bilateral pneumonia on chest x-ray and concern for aspiration -Chest x-ray shows minimal improvement of bilateral pneumonia 2. Community Acquired Pneumonia, present on admission. Active - Treating pneumonia as above - Solu-Medrol 60mg IV daily per Pulmonary discontinued on 09/29/16 - Pulmonology consult. Recommendations per Pulm appreciated - Oxygen and delivery mechanism managed by Pulm, much appreciated. Bipap or O2 by nasal cannula overnight, now on room air with O2 at 95% - Echo indicates worsening mitral regurgitation, now mild to moderate, likely contributing to her hypoxemia, but not the sole etiology of it. - Procalcitonin has trended down to 0.27 - Stop antibiotics the day before discharge 3. Suspected acute exacerbation of undiagnosed COPD, present on admission. Under evaluation - Patient has long time tobacco use; reports recent sick contacts; denies diagnosis of COPD - CXR 09/21: Bronchitis, left lower lobe pneumonia - Patient needs outpatient pulmonary function test - Duoneb qidwa + accuneb q2h prn 4. Metabolic acidosis, pure. Acute. Present on admission. Improving. ABG on 09/28 indicating pH of 7.454. - On admit: Na 130, Cl 91, bicarb 17, albumin 4.3; AG 22/delta gap 10; 1.43 ratio, - On 09/27/16: Na 137, Cl 96, bicarb 22, Albumin 3.1, AG 19/delta gap 5.5 suggesting high AG acidosis with metabolic alkalosis - ABG on 09/27/16 reveals Alkalosis - 09/29/16 AG is 14 - Due to sepsis - Likely secondary to initial presentation of sepsis/suspicion for LA but LA is 1.1; decrease in Na secondary to medication (mirtazapine), or side effect - Continue to monitor as underlying infection is treated - UA unremarkable 6. Electrolyte abnormalities, acute, present on admission. Persists - Repleted electrolytes - Monitored with daily labs 7. Ongoing tobacco use, chronic. Presumed stable - Patient reports decrease of daily use - Nicotine patch daily plus lozenges as needed - Continued to general counsel on cessation 8. Tachycardia, acute, present on admission. Improved - Echocardiogram today reveals worsening mitral regurge. - May be secondary to ongoing cough, anxiety, infection, nebulizer treatment - Patient denies any cardiac symptoms of chest pain and palpitations - Address underlying causes, notably increased anxiety and coughing - Subclinical hyperthyroidism 9. Relapsing remitting multiple sclerosis, chronic. Presumed stable - Patient admits to intermittent "fog" - Patient states symptoms are currently stable - Monitor - Home med Tecf[employer]: Order for pt to use own medication placed 10. Anxiety/depression, chronic. Presumed stable - Resume home medications ,: Hydroxyzine, mirtazapine, promethazine per [facility] 11. Tension-type headaches, chronic. Presumed stable - Resume home medications : Venlafaxine per [facility] 12. Chronic pain. Presumed stable - Patient reports oxycodone daily use; verified in [facility] - Available when necessary 13. GERD, chronic. Presumed stable - Resume daily PPI therapy PRN: Fever/nausea/bowel/pain GI: PPI Diet: General; bedside swallow eval to assess aspiration with cough DVT: Heparin every 8h IVF: NS 100 CODE STATUS: Full code Disposition: Home . Exam Vital Signs (Last) Date Time Temp Pulse Resp B/P Pulse Ox O2 Delivery O2 Flow Rate FiO2 09/30/16 12:27 36.8 117 20 100/63 96 Room Air 09/29/16 16:32 2.00 09/28/16 08:17 32 Exam General: Frail-appearing woman, alert and oriented 3, cooperative HEENT: Atraumatic, sclera anicteric. BiPAP mask in place Cardiac: Tachycardic with rate approximately 110s. No murmurs appreciated Respiratory: Bibasilar crackles. Abdomen: Soft, nontender, nondistended Extremities: Thin, no edema present Skin: Warm and dry Pulses: Radial equal and intact. Dorsalis pedis equal bilaterally Neuro: Grossly neurologically intact Psych: Appropriate mood and affect Test 09/23/16 20:30 09/24/16 03:20 09/25/16 09:14 09/26/16 02:55 Hemoglobin A1c 5.9% (4.8-5.6) Pro-B-Type Natriuretic Peptide 716.9pg/mL (0-287) Hold Lozano Top Tube Received (Received) Urine Color Yellow (YELLOW) Urine Appearance Clear (CLEAR,HAZY) Urine pH 6.0 (5.0-8.0) Urine Specific [place] 1.009 (1.003-1.035) Urine Protein Negativemg/dL (NEG,TRACE) Urine Glucose (UA) Negativemg/dL (NEGATIVE) Urine Ketones Negativemg/dL (NEGATIVE) Urine Occult Blood Negative (NEGATIVE) Urine Nitrite Negative (NEGATIVE) Urine Bilirubin Negative (NEGATIVE) Urine Urobilinogen Normalmg/dL (NORMAL) Urine Leukocyte Esterase Negative (NEGATIVE) Urine RBC 0-2/hpf (0-2) Urine WBC 0-5/hpf (0-5) Urine Epithelial Cells Occasional/hpf (NONE-MOD) Urine Crystals None seen (NONE SEEN) Urine Bacteria Few/hpf (NONE-FEW) Urine Hyaline Casts None/lpf (NONE) Urine Granular Casts None seen (NONE SEEN) Urine Waxy Casts None seen (NONE SEEN) Urine Red Blood Cell Casts None seen (NONE SEEN) Urine White Blood Cell Casts None seen (NONE SEEN) Urine Mucus None seen (None Seen) Urine Trichomonas None seen (NONE SEEN) Urine Yeast None (NONE SEEN) Urinalysis Comment None Urine Culture Reflexed Not indicated Urine Legionella pneumophilia Ag Negative (Negative) Thyroid Stimulating Hormone (TSH) 0.284uIU/mL (0.450-4.500) Free Thyroxine 1.31ng/dL (0.82-1.77) Troponin T 0.010ug/L (0.0-0.011) Test 09/28/16 04:30 09/29/16 03:40 09/30/16 05:55 Phosphorus Level 2.9mg/dL (2.5-4.9) Magnesium Level 1.8mg/dL (1.6-2.6) Procalcitonin 0.27ng/mL (0.00-0.08) White Blood Count 10.4th/mm3 (3.8-10.1) Red Blood Count 3.29mil/mm3 (3.90-5.20) Hemoglobin 9.0g/dL (12.0-15.6) Hematocrit 26.7% (35.0-46.0) Mean Corpuscular Volume 81.2fL (81-100) Mean Corpuscular Hemoglobin 27.4pg (27.0-35.0) Mean Corpuscular Hemoglobin Concent 33.7% (32.0-37.0) Red Cell Distribution Width 15.4% (12.3-15.4) Platelet Count 396bil/L (150-400) Neutrophils (%) (Auto) 64.6% (40-74) Lymphocytes (%) (Auto) 23.1% (14-46) Monocytes (%) (Auto) 8.6% (4-12) Eosinophils (%) (Auto) 1.6% (0-5) Basophils (%) (Auto) 0.2% (0-3) Sodium Level 141mEq/L (134-144) Potassium Level 3.3mEq/L (3.5-5.2) Chloride Level 99mEq/L (97-108) Carbon Dioxide Level 27mmol/L (18-29) Blood Urea Nitrogen 12mg/dL (6-24) Creatinine 0.44mg/dL (0.57-1.00) Estimat Glomerular Filtration Rate 210mL/min (>59) Glucose Level 92mg/dL (60-99) Lactic Acid Level 1.0mmol/L (0.4-2.0) Calcium Level 9.0mg/dL (8.5-10.1) Total Bilirubin 0.3mg/dL (0.0-1.2) Aspartate Amino Transf (AST/SGOT) 30U/L (0-50) Alanine Aminotransferase (ALT/SGPT) 22U/L (0-32) Alkaline Phosphatase 108U/L (25-165) Total Protein 5.5g/dL (6.4-8.4) Albumin 3.6g/dL (3.4-5.0) Microbiology Results Urine strep pneumo antigen negative Nasopharyngeal PCR negative Nasal MRSA swab negative Blood cultures 2 with no growth after 5 days Sputum culture with light normal jessie Discharge Medications Discharge Medications Ascorbic Acid (Vitamin C) 1,000 Mg Tab.chew 1,000 MG PO DAILY (Reported) Cholecalciferol (Vitamin D3) (Vitamin D3) 5,000 Unit Tablet 5,000 UNIT PO DAILY (Reported) Dimethyl Fumarate ([employer]ecfidera) 240 Mg Capsule 240 MG PO BID (Reported) Lansoprazole DR (Prevacid) 30 Mg Capsule 30 MG PO DAILY (Reported) Levetiracetam (Levetiracetam) 500 Mg Tablet 1,000 MG PO BID (Reported) Mirtazapine (Mirtazapine) 45 Mg Tablet 45 MG PO HS (Reported) Multivitamin (Once Daily) 1 Each Tablet 1 EACH PO DAILY (Reported) Ranitidine (Ranitidine) 300 Mg Tablet 300 MG PO HS (Reported) Tizanidine (Tizanidine) 4 Mg Tablet 4 MG PO TID (Reported) Venlafaxine (Venlafaxine) 100 Mg Tablet 100 MG PO TID (Reported) Vit B Comp/C/FA/Iron/Vit E (Vitamin B Complex Tablet) 1 Each Tablet 1 EACH PO DAILY (Reported) As needed Hydroxyzine Pamoate (HydrOXYzine Pamoate) 50 Mg Capsule 50-100 MG PO HS PRN PRN For Insomnia (Reported) Promethazine (Promethazine) 25 Mg Tablet 25 MG PO PRN For Nausea/Vomiting ( Reported) oxyCODONE-Acetaminophen 5-325 mg (oxyCODONE-Acetaminophen 5-325 mg) 1 Each Tablet 2 TAB PO TID PRN PRN For Pain (Reported) Additional med instructions No new medications at discharge, antibiotics completed in the hospital. Followup Plan Disposition: Home Follow-up plan Follow-up with Tee Elliott M.D. Discharge Diet: Heart Healthy Discharge Activity: No restrictions Patient Instructions Please do everything you can do to stay healthy and not return to the hospital: STOP SMOKING! Get your doctor's help and your 's help. It will make a big difference in your life! Exercise, eat well, and drink around 48 oz of water daily. Follow-up Provider: Tee Elliott MD Follow-up with PCP in: 1 week Time spent Greater than 30 minutes was spent in preparation of discharge with greater than 50% of that time dedicated to patient counseling and coordination of care. . Attending Statement The patient was seen and examined together with Dr. Silver on 09/30/2016 and I agree with the history, exam and plan as outlined in the note above. . copies to: Tee Elliott MD, Alan C DO September 30, 2016 18:25 Maldonado Parsons MD September 30, 2016 19:02
== END 2016-09-30 15:45 | disposition home or self-care (01) | DRG 871 ==
LOC: MPC 19:40 → PCC 09-26 02:22 → CCU 09-26 13:30 → PCC 09-28 18:32
PROVIDERS: ADMIT Internal Medicine; ATTEND Internal Medicine
PROC: 5A09357 Assistance with Respiratory Ventilation, Less than 24 Consecutive Hours, Continuous Positive Airway Pressure (ICD-10-PCS; principal; 2016-09-26)
PROC: 4A033R1 Measurement of Arterial Saturation, Peripheral, Percutaneous Approach (ICD-10-PCS; 2016-09-26)
DX: A41.9 Sepsis, unspecified organism (principal); J18.9 Pneumonia, unspecified organism; J96.01 Acute respiratory failure with hypoxia; J44.1 Chronic obstructive pulmonary disease with (acute) exacerbation; E87.2 Acidosis; G40.802 Other epilepsy, not intractable, without status epilepticus; G35 Multiple sclerosis; J20.9 Acute bronchitis, unspecified; F17.210 Nicotine dependence, cigarettes, uncomplicated; G89.29 Other chronic pain; F41.9 Anxiety disorder, unspecified; F32.9 Major depressive disorder, single episode, unspecified; G44.229 Chronic tension-type headache, not intractable; K21.9 Gastro-esophageal reflux disease without esophagitis; E87.8 Other disorders of electrolyte and fluid balance, not elsewhere classified